=== PATIENT | female | born 1980 | race Two or more races ===

== ENCOUNTER 2020-05-04 11:18 | Emergency (ER) | payer OTHER ==
[~2020-05-04] VITALS: Ht 167.6 cm; Wt 93.4 kg
[2020-05-04] MEDS ORDERED: ACETAMINOPHEN 325 MG TABLET PO ONE (11:30)
[2020-05-04] MEDS ORDERED: IV NORMAL SALINE 1,000ML 1,000 ML IV ONE (11:30)
--- NOTE | 2020-05-04 11:31 | PHYS DOC ---
Past History Past Medical History: Arthritis (Rheumatoid), Hypertension, Seizure Adult General Chief Complaint Chief Complaint: SEIZURE HPI HPI Patient is a 39-year-old female presenting via EMS for seizure. Per EMS report, patient son was participating in [employer] education when he started crying. Teacher inquired about why child was crying and he stated that his mother passed out. Teacher subsequently called EMS to patient's house for a wellness check. On arrival, patient was found to be in a postictal state and experienced a subsequent generalized grand mal seizure-like activity that lasted less than 10 seconds in duration and resolved without intervention. Patient's was contacted, he reports that patient has history of seizures and takes medications daily, sees Dr. Astudillo in outpatient setting for this. Last seizure was approximately 7 to 8 months ago. Patient has had no recent medication changes, no recent travel or concerning ingestions. Given that initial seizure activity occurred at 9:30 AM and it is unknown how long patient was down, decision was made to bring patient to our ER for evaluation. On arrival to our facility, patient is AAO x3. Still postictal but per EMS is markedly improved versus when initially seen on the scene. Patient denies any known trauma, per EMS, patient was in chair in living room, no signs of trauma or falls when evaluated on scene. Per child, no falls, did not hit head Review of Systems Review of Systems Fourteen body systems of review of systems have been reviewed. See HPI for pertinent positives and negative responses, other godinez all other systems are negative, non-pertinent or non-contributory Allergies Allergies Allergies Coded Allergies Type Severity Reaction Last Updated Verified No Known Drug Allergies 05/04/20 No Physical Exam Physical Exam Constitutional: Well developed, well nourished, no acute distress, non-toxic appearance. Appears postictal HENT: Normocephalic, atraumatic, bilateral external ears normal, negative meek sign, oropharynx moist, no oral exudates, nose normal. Eyes: PERRLA, EOMI, conjunctiva normal, no discharge. Neck: Normal range of motion, no midline tenderness, supple, no stridor. Cardiovascular: Heart rate regular, sinus rhythm, no murmurs rubs or gallops Lungs & Thorax: Bilateral breath sounds clear to auscultation Abdomen: Bowel sounds normal, soft, no tenderness, no masses, no pulsatile masses. Nonsurgical abdomen, no peritoneal signs Skin: Warm, dry, no erythema, no rash. Back: No tenderness, no CVA tenderness. Extremities: No tenderness, no cyanosis, no clubbing, ROM intact, no edema. Neurologic: Alert and oriented X 3, cranial nerves II through XII intact, normal motor & sensory function, no focal deficits noted. Psychologic: Affect normal, judgement normal, mood normal. Current Patient Data Vital Signs Vital Signs Date Time Temp Pulse Resp B/P (MAP) Pulse Ox O2 Delivery O2 Flow Rate FiO2 05/04/20 12:47 87 171/126 05/04/20 12:38 16 98 Room Air 05/04/20 11:22 98.1 Lab Results Laboratory Tests Test 05/04/20 11:29 05/04/20 12:40 05/04/20 12:44 White Blood Count 8.2 x10^3/uL (4.0-11.0) Red Blood Count 4.68 x10^6/uL (3.50-5.40) Hemoglobin 12.6 g/dL (12.0-15.5) Hematocrit 38.7 % (36.0-47.0) Mean Corpuscular Volume 83 fL (79-100) Mean Corpuscular Hemoglobin 27 pg (25-35) Mean Corpuscular Hemoglobin Concent 33 g/dL (31-37) Red Cell Distribution Width 13.2 % (11.5-14.5) Platelet Count 328 x10^3/uL (140-400) Neutrophils (%) (Auto) 68 % (31-73) Lymphocytes (%) (Auto) 24 % (24-48) Monocytes (%) (Auto) 5 % (0-9) Eosinophils (%) (Auto) 3 % (0-3) Basophils (%) (Auto) 1 % (0-3) Neutrophils # (Auto) 5.6 x10^3uL (1.8-7.7) Lymphocytes # (Auto) 2.0 x10^3/uL (1.0-4.8) Monocytes # (Auto) 0.4 x10^3/uL (0.0-1.1) Eosinophils # (Auto) 0.2 x10^3/uL (0.0-0.7) Basophils # (Auto) 0.1 x10^3/uL (0.0-0.2) Sodium Level 138 mmol/L (136-145) Potassium Level 3.2 mmol/L (3.5-5.1) Chloride Level 101 mmol/L (98-107) Carbon Dioxide Level 25 mmol/L (21-32) Anion Gap 12 (6-14) Blood Urea Nitrogen 6 mg/dL (7-20) Creatinine 1.0 mg/dL (0.6-1.0) Estimated GFR (Cockcroft-Gault) 62.1 BUN/Creatinine Ratio 6 (6-20) Glucose Level 197 mg/dL (70-99) Calcium Level 8.3 mg/dL (8.5-10.1) Total Bilirubin 0.7 mg/dL (0.2-1.0) Aspartate Amino Transf (AST/SGOT) 58 U/L (15-37) Alanine Aminotransferase (ALT/SGPT) 79 U/L (14-59) Alkaline Phosphatase 73 U/L (46-116) Creatine Kinase 211 U/L (26-192) Total Protein 7.1 g/dL (6.4-8.2) Albumin 3.1 g/dL (3.4-5.0) Albumin/Globulin Ratio 0.8 (1.0-1.7) Urine Collection Type Unknown Urine Color Yellow Urine Clarity Cloudy Urine pH 7.[address] 1.015 Urine Protein Trace (NEG-TRACE) Urine Glucose (UA) 100 mg/dL (NEG) Urine Ketones (Stick) Neg mg/dL (NEG) Urine Blood Neg (NEG) Urine Nitrite Neg (NEG) Urine Bilirubin Neg (NEG) Urine Urobilinogen Dipstick 0.2 mg/dL (0.2 mg/dL) Urine Leukocyte Esterase Mod (NEG) Urine RBC Occ /HPF (0-2) Urine WBC 1-4 /HPF (0-4) Urine Squamous Epithelial Cells Many /LPF Urine Bacteria Mod /HPF (0-FEW) Urine Test Negative (NEG) Bedside Urine HCG, Qualitative hcg negative (Negative) EKG EKG EKG ordered and interpreted by myself at 1136 hrs. as sinus rhythm at 99 bpm, unremarkable intervals but does have a prolonged QTC at 491, no axis deviation, no ischemic findings, no STEMI Radiology/Procedures Radiology/Procedures INDICATION: Reason: SEIZURE / Spl. Instructions: / History: COMPARISON: None. FINDINGS: Single view of chest obtained. Cardiac silhouette is prominent in size but likely exaggerated by portable technique. Left lung base is not well evaluated given the lack of lateral view. No consolidation elsewhere in the lungs. IMPRESSION: * No definite focal airspace consolidation. Electronically signed by: Noble Damon MD (05/04/2020 12:06 PM) [id number] CT HEAD WITHOUT CONTRAST History: Reason: SEIZURE, PROLONGED POST ICTAL STATE / Spl. Instructions: / History: Comparison: None. Procedure: Axial images are obtained of the head from the skull base through the vertex without IV contrast. Findings: The ventricles and sulci are normal for the patient's age. No mass-effect, midline shift, hemorrhage, extra-axial fluid collection, or obvious acute infarction is identified. Basilar cisterns are patent. Bone windows demonstrate no acute calvarial abnormality. The visualized paranasal sinuses are clear. Mastoid air cells are well aerated. IMPRESSION: No acute intracranial abnormality. Electronically signed by: Joseph Maya MD (05/04/2020 11:57 AM) [id number] Heart Score HEART Score for Chest Pain: HEART Score for Chest Pain Response (Comments) Value History Slighlty/Non-Suspicious 0 ECG Normal 0 Age < 45 0 Risk Factors 1 or 2 Risk Factors 1 Total 1 Risk Factors: Risk Factors: DM, Current or recent (<one month) smoker, HTN, HLP, family history of CAD, obesity. Risk Scores: Risk Factors: DM, Current or recent (<one month) smoker, HTN, HLP, family history of CAD, obesity. Course & Med Decision Making Course & Med Decision Making Airway patent, breathing unlabored, vitals remarkable for hypertension only. Patient did not take morning hypertensive medication, this was administered while in ER today Pertinent Labs and Imaging studies reviewed. (See chart for details) Well-appearing and non-txic. Not , ambulatory and tolerating p.o. intake. Discussed potential for UTI to have lowered patient's seizure threshold. Patient given x1 Macrobid for uncomplicated UTI today with subsequent prescription written. 40 mEq potassium given for hypokalemia. I discussed findings of prolonged QT, no prior cardiac work-up performed After stating the above as explanations for patient's presenting symptoms, I did disclose this might be an acute presentation more concerning pathology and so, close outpatient PCP and neurology follow-up is advised Patient was advised and educated on importance of close outpatient follow-up. I advised them to call primary care physician as soon as possible to discuss following up in outpatient setting after ER departure for repeat examination and evaluation. Strict return precautions were discussed at length with good understanding by patient who is able to restate plan and concerning signs or symptoms that should prompt immediate medical attention. All questions and concerns addressed prior to ER departure Dragkelsy Disclaimer Dragon Disclaimer This electronic medical record was generated, in whole or in part, using a voice recognition dictation system. Departure Departure: Impression: Primary Impression: Seizure disorder Additional Impressions: UTI (urinary tract infection) Prolonged QT interval Hypokalemia Disposition: 01 DC HOME SELF CARE/HOMELESS Condition: IMPROVED Patient Instructions: Seizure, Adult, Urinary Tract Infection Scripts Nitrofurantoin Monohyd/M-Cryst (MACROBID 100 MG CAPSULE) 100 Mg Capsule 100 MG PO BID for UTI for 5 Days, #10 CAP Prov: JEREMY FARR DO 05/04/20 Problem Qualifiers JEREMY FARR DO May 04, 2020 11:31
[2020-05-04 11:54] LABS: BASO # 0.1 x10^3/uL (0.0-0.2); BASO % 1 % (0-3); EOS # 0.2 x10^3/uL (0.0-0.7); EOS % 3 % (0-3); HEMATOCRIT 38.7 % (36.0-47.0); HEMOGLOBIN 12.6 g/dL (12.0-15.5); LYMPH % 24 % (24-48); MEAN CORPUSCULAR HEMOGLOBIN 27 pg (25-35); MEAN CORPUSCULAR HGB CONC 33 g/dL (31-37); MEAN CORPUSCULAR VOLUME 83 fL (79-100); MONO # 0.4 x10^3/uL (0.0-1.1); MONO % 5 % (0-9); NEUT # 5.6 x10^3uL (1.8-7.7); NEUT % 68 % (31-73); PLATELET COUNT 328 x10^3/uL (140-400); RED BLOOD COUNT 4.68 x10^6/uL (3.50-5.40); RED CELL DISTRIBUTION WIDTH 13.2 % (11.5-14.5); WHITE BLOOD COUNT 8.2 x10^3/uL (4.0-11.0)
--- NOTE | 2020-05-04 11:59 | RAD ---
RS Compliance Statement: One or more of the following individualized dose reduction techniques were utilized for this examination: 1. Automated exposure control 2. Adjustment of the mA and/or kV according to patient size 3. Use of iterative reconstruction technique CT HEAD WITHOUT CONTRAST History: Reason: SEIZURE, PROLONGED POST ICTAL STATE / Spl. Instructions: / History: Comparison: None. Procedure: Axial images are obtained of the head from the skull base through the vertex without IV contrast. Findings: The ventricles and sulci are normal for the patient's age. No mass-effect, midline shift, hemorrhage, extra-axial fluid collection, or obvious acute infarction is identified. Basilar cisterns are patent. Bone windows demonstrate no acute calvarial abnormality. The visualized paranasal sinuses are clear. Mastoid air cells are well aerated. IMPRESSION: No acute intracranial abnormality. Electronically signed by: Joseph Maya MD (05/04/2020 11:57 AM) [id number]
[2020-05-04 12:01] LABS: CALCIUM 8.3 mg/dL (8.5-10.1); GFR 62.1; POTASSIUM 3.2 mmol/L (3.5-5.1)
[2020-05-04 12:05] LABS: ALBUMIN 3.1 g/dL (3.4-5.0); ALBUMIN/GLOBULIN RATIO 0.8 (1.0-1.7); TOTAL BILIRUBIN 0.7 mg/dL (0.2-1.0); TOTAL PROTEIN 7.1 g/dL (6.4-8.2)
--- NOTE | 2020-05-04 12:11 | RAD ---
INDICATION: Reason: SEIZURE / Spl. Instructions: / History: COMPARISON: None. FINDINGS: Single view of chest obtained. Cardiac silhouette is prominent in size but likely exaggerated by portable technique. Left lung base is not well evaluated given the lack of lateral view. No consolidation elsewhere in the lungs. IMPRESSION: * No definite focal airspace consolidation. Electronically signed by: Noble Damon MD (05/04/2020 12:06 PM) [id number]
[2020-05-04] MEDS ORDERED: POTASSIUM CHLORIDE 20 MEQ TABLET.ER. PO ONE (12:30)
[2020-05-04 12:47] VITALS: BP 171/126
[2020-05-04] MEDS ORDERED: LOSARTAN 50 MG TABLET. PO ONE (12:47)
[2020-05-04 13:20] LABS: BACTERIA,URINE MOD /HPF (0-FEW); BILIRUBIN,URINE NEG (NEG); CLARITY,URINE CLOUDY; COLOR,URINE YELLOW; GLUCOSE,URINE 100 mg/dL (NEG); NITRITE,URINE NEG (NEG); RBC,URINE OCC /HPF (0-2); SQUAMOUS EPITHELIAL CELL,UR MANY /LPF; UROBILINOGEN,URINE 0.2 mg/dL (0.2 mg/dL)
[2020-05-04 13:21] LABS: U PREG PATIENT NEGATIVE (NEG)
[2020-05-04] MEDS ORDERED: NITR100C62 PO (13:27)
[2020-05-04] MEDS ORDERED: NITROFURANTOIN MONOHYD/M-CRYST 100 MG CAPSULE. PO ONE (13:30)
--- NOTE | 2020-05-04 15:58 | EKG ---
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
== END 2020-05-04 13:47 | disposition home or self-care (01) ==
LOC: ER 11:18
DX: G40.909 Epilepsy, unspecified, not intractable, without status epilepticus (principal); N39.0 Urinary tract infection, site not specified; I45.81 Long QT syndrome; E87.6 Hypokalemia; I10 Essential (primary) hypertension; M06.9 Rheumatoid arthritis, unspecified
CPT/HCPCS: 36415; 70450; 71045; 80053; 81001; 81025; 82550; 85025; 87086; 93005; 99285

== ENCOUNTER 2020-08-03 14:59 | Observation (INO) | payer OTHER ==
[~2020-08-03] VITALS: Ht 165.1 cm; Wt 92.6 kg
[~2020-08-03 14:59] MED LIST: NITR100C62 PO
[2020-08-03 15:24] LABS: BASO # 0.1 x10^3/uL (0.0-0.2); BASO % 1 % (0-3); EOS # 0.4 x10^3/uL (0.0-0.7); EOS % 4 % (0-3); HEMATOCRIT 40.7 % (36.0-47.0); HEMOGLOBIN 13.6 g/dL (12.0-15.5); LYMPH # 3.1 x10^3/uL (1.0-4.8); LYMPH % 33 % (24-48); MEAN CORPUSCULAR HEMOGLOBIN 27 pg (25-35); MEAN CORPUSCULAR HGB CONC 33 g/dL (31-37); MEAN CORPUSCULAR VOLUME 80 fL (79-100); MONO # 0.6 x10^3/uL (0.0-1.1); MONO % 6 % (0-9); NEUT # 5.2 x10^3uL (1.8-7.7); NEUT % 56 % (31-73); PLATELET COUNT 424 x10^3/uL (140-400); WHITE BLOOD COUNT 9.3 x10^3/uL (4.0-11.0)
[2020-08-03 16:24] LABS: CALCIUM 8.4 mg/dL (8.5-10.1); CREATININE 1.2 mg/dL (0.6-1.0); GFR 50.3
[2020-08-03 16:30] LABS: ALBUMIN 3.3 g/dL (3.4-5.0); ALBUMIN/GLOBULIN RATIO 0.8 (1.0-1.7); TOTAL BILIRUBIN 0.3 mg/dL (0.2-1.0); TOTAL PROTEIN 7.4 g/dL (6.4-8.2)
[2020-08-03 16:42] LABS: PREG TEST PT QUAL NEGATIVE (NEG)
--- NOTE | 2020-08-03 16:48 | PHYS DOC ---
Past History Past Medical History: Arthritis, Hypertension, Seizure Past Surgical History: Tubal ligation Alcohol Use: None Adult General Chief Complaint Chief Complaint: SEIZURE HPI HPI Patient is 39-year-old female with a known seizure disorder who presents to the emergency room with seizure. Is unclear how long she had been seizing prior to arrival. History is very limited as patient was dropped off by her who had to leave to take care of their children. Patient is unable to provide any history. Review of Systems Review of Systems Complete ROS is negative unless otherwise documented in HPI Current Medications Current Medications Current Medications Medications (Trade) Dose Ordered Sig/Nino Start Time Stop Time Status Last Admin Dose Admin Levetiracetam 1000 mg/Sodium Chloride 100 ml @ 400 mls/hr 1X ONCE 08/03/20 15:15 08/03/20 15:29 DC 08/03/20 15:23 400 MLS/HR Lorazepam (Ativan Inj) 1 mg 1X ONCE 08/03/20 15:15 08/03/20 15:16 DC 08/03/20 15:18 1 MG Allergies Allergies Allergies Coded Allergies Type Severity Reaction Last Updated Verified No Known Drug Allergies 05/04/20 No Physical Exam Physical Exam General: Unresponsive, well developed HEENT: Atraumatic, EOMI, PERRL, airway patent, moist oral mucosa Neck: Supple, trachea midline Respiratory: CTA bilaterally, normal effort, no wheezing/crackles CV: Tachycardic, no murmur, cap refill <2 GI: Soft, nondistended, no masses MSK: No obvious deformities Skin: Warm, dry, intact Neuro: Unresponsive, nystagmus, generalized muscle contractions consistent with seizure Current Patient Data Vital Signs Vital Signs Date Time Temp Pulse Resp B/P (MAP) Pulse Ox O2 Delivery O2 Flow Rate FiO2 08/03/20 16:00 100 22 146/86 (106) 98 Nasal Cannula 08/03/20 15:15 98.1 08/03/20 14:59 15.0 Lab Results Laboratory Tests Test 08/03/20 15:05 08/03/20 15:10 White Blood Count 9.3 x10^3/uL (4.0-11.0) Red Blood Count 5.10 x10^6/uL (3.50-5.40) Hemoglobin 13.6 g/dL (12.0-15.5) Hematocrit 40.7 % (36.0-47.0) Mean Corpuscular Volume 80 fL (79-100) Mean Corpuscular Hemoglobin 27 pg (25-35) Mean Corpuscular Hemoglobin Concent 33 g/dL (31-37) Red Cell Distribution Width 14.0 % (11.5-14.5) Platelet Count 424 x10^3/uL (140-400) H Neutrophils (%) (Auto) 56 % (31-73) Lymphocytes (%) (Auto) 33 % (24-48) Monocytes (%) (Auto) 6 % (0-9) Eosinophils (%) (Auto) 4 % (0-3) H Basophils (%) (Auto) 1 % (0-3) Neutrophils # (Auto) 5.2 x10^3uL (1.8-7.7) Lymphocytes # (Auto) 3.1 x10^3/uL (1.0-4.8) Monocytes # (Auto) 0.6 x10^3/uL (0.0-1.1) Eosinophils # (Auto) 0.4 x10^3/uL (0.0-0.7) Basophils # (Auto) 0.1 x10^3/uL (0.0-0.2) Sodium Level 141 mmol/L (136-145) Potassium Level Pending Chloride Level 100 mmol/L (98-107) Carbon Dioxide Level 30 mmol/L (21-32) Anion Gap 11 (6-14) Blood Urea Nitrogen 11 mg/dL (7-20) Creatinine 1.2 mg/dL (0.6-1.0) H Estimated GFR (Cockcroft-Gault) 50.3 BUN/Creatinine Ratio 9 (6-20) Glucose Level 235 mg/dL (70-99) H Calcium Level 8.4 mg/dL (8.5-10.1) L Total Bilirubin 0.3 mg/dL (0.2-1.0) Aspartate Amino Transferase (AST) 47 U/L (15-37) H Alanine Aminotransferase (ALT) 58 U/L (14-59) Alkaline Phosphatase 80 U/L (46-116) Total Protein 7.4 g/dL (6.4-8.2) Albumin 3.3 g/dL (3.4-5.0) L Albumin/Globulin Ratio 0.8 (1.0-1.7) L Serum Test, Qualitative Negative (NEG) Glucose (Fingerstick) 221 mg/dL (70-99) H EKG EKG [] Radiology/Procedures Radiology/Procedures [] Heart Score Risk Factors: Risk Factors: DM, Current or recent (<one month) smoker, HTN, HLP, family history of CAD, obesity. Risk Scores: Risk Factors: DM, Current or recent (<one month) smoker, HTN, HLP, family history of CAD, obesity. Course & Med Decision Making Course & Med Decision Making Pertinent Labs and Imaging studies reviewed. (See chart for details) Patient is a 39-year-old female who presents to the emergency room with seizure. Is unclear at this time whether she has been taking her medications. She was last seen here for seizures in May. Lab work was ordered to rule out anything that could lower the seizure threshold. Patient was given Ativan and Keppra upon arrival. Seizures did stop at that time and patient became postictal. Patient had a second seizure here in the emergency room that lasted less than a minute. She received Ativan 2 mg which resolved the seizure. She was given a second 1000 mg dose of Keppra. I discussed the case with Dr. Early who will admit her to the hospital. A consult was placed for Dr. Astudillo who she sees in clinic. Patient is on Vimpat for seizures at home. Dragon Disclaimer Dragon Disclaimer This electronic medical record was generated, in whole or in part, using a voice recognition dictation system. Departure Departure: Impression: Primary Impression: Seizure Disposition: ADMITTED INPT THIS HOSP Condition: STABLE Referrals: PCP,UNKNOWN (PCP) YAMILA HERNÁNDEZ MD Aug 03, 2020 16:48
[2020-08-03 17:11] LABS: POTASSIUM 3.4 mmol/L (3.5-5.1)
--- NOTE | 2020-08-03 18:13 | EKG ---
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
--- NOTE | 2020-08-03 18:36 | RAD ---
Exam: CT head INDICATION: Multiple seizures TECHNIQUE: Sequential axial images through the head were obtained without the administration of IV co ntrast. Comparisons: 05/04/2020 FINDINGS: No focal parenchymal lesion or hemorrhage is identified. There is no midline shift or sulcal effaceme nt. No acute vascular territory infarction is identified. Adan-white distinction is preserved. The ventricular system is within normal limits without compression hydrocephalus. The basal cisterns are well maintained. The visualized portions of the paranasal sinuses and mastoid air cells are well-pneumatized. No acute fractures. IMPRESSION: No acute intracranial abnormality. Exposure: One or more of the following in the visualized dose reduction techniques were utilized for this examination: 1. Automated exposure control 2. Adjustment of the MA and/or KV according to patient size Use of iterative of reconstructive technique Electronically signed by: Serafin Krishnamurthy MD (08/03/2020 6:34 PM) FAITH
[2020-08-03 19:15] VITALS: BP 157/94
--- NOTE | 2020-08-03 19:15 | NUR ---
Pt admitted to ICU bed 2 from ER via [facility], accompanied by EMS and nursing staff. Pt was pulled over from gurney to bed x3 assist, pt very drowsy r/t Ativan given in ER and recent seizure. Pt is drowsy but will shake head appropriately to questions or answer with one word statements. Admission history per pt, records and Aneesh over phone. Pt lives at home with and kids. Pt refused flu vaccine. SCDs for VTE. Pt was given written information regarding hospital policies, unit procedures and contact persons. POC reviewed with pt, reinforcement needed. Valuables were checked and left in green bag at bedside. - Aneesh called for update and reviewed home medications, he read the bottles over the phone. Dr. Astudillo paged about new consult and returned call, stated that he is coming in to see pt tonight. Dr. Early called for new orders. Bed padded for seizure precautions.
[2020-08-03] MEDS ORDERED: LACO200T PO (19:58)
[2020-08-03 20:00] VITALS: BP 152/98
[2020-08-03] MEDS ORDERED: AMLO10TA4 PO (20:20)
[2020-08-03] MEDS ORDERED: LOSA100T14 PO (20:20)
[2020-08-03] MEDS ORDERED: ARIP15TA36 PO (20:20)
[2020-08-03] MEDS ORDERED: POTA20TA4 PO (20:20)
[2020-08-03] MEDS ORDERED: METO-313 PO (20:20)
[2020-08-03] MEDS ORDERED: METH2.5T PO (20:33)
[2020-08-03] MEDS: LACOSAMIDE 50 MG TABLET PO SCH (20:54)
[2020-08-03 21:00] VITALS: BP 172/110
[2020-08-03] MEDS ORDERED: ARIPiprazole 15 MG TABLET PO SCH (21:30)
[2020-08-03 22:00] VITALS: BP 161/110
[2020-08-03] MEDS: METOPROLOL TART IMMED RELEASE 50 MG TABLET PO SCH (22:26)
--- NOTE | 2020-08-03 22:40 | CONS ---
DATE OF CONSULTATION: NEUROLOGY CONSULTATION REFERRING PHYSICIAN: Dr. Edgard Early REASON FOR CONSULTATION: Breakthrough seizure. HISTORY OF PRESENT ILLNESS: This is a 39-year-old right-handed female who was admitted through Emergency Room after she presented with recurrent seizure-like activities prior to this admission. The patient has been in my office on a regular basis for seizure disorder. I saw her 3 months ago and sometimes she told me she would have seizure when she forgot to take her medications. Currently, the patient is in confusion and postictal state and she is not able to provide any information; however, the patient was given Ativan in the Emergency Room and she started on 1000 of Keppra intravenously. According to her , the patient had a "big seizure" 2 days ago and today, she went with her to a store and she started having intermittent "muscle spasm of the arms and legs." Therefore, he decided to take her to Emergency Room for further evaluation. Initial nonenhanced head CT scan revealed no evidence of acute intracranial process, otherwise unremarkable. The stated that she has been compliant with her medication for seizure. Further information is not available at this time as the patient has been in postictal and not able to provide any information. PAST MEDICAL HISTORY: Significant for hypertension, seizure disorder, depression and anxiety. SOCIAL HISTORY: The patient is . She denies smoking, alcohol drinking, or illicit drug use. FAMILY HISTORY: Noncontributory. CURRENT HOME MEDICATIONS: Amlodipine 10 mg p.o. daily, Abilify 15 mg p.o. at bedtime, Vimpat 200 mg twice daily, losartan 100 mg daily, metoprolol tartrate, Lopressor 100 mg daily, and potassium chloride 20 mEq 1 tablet daily. ALLERGIES: No known drug allergies. REVIEW OF SYSTEMS: A 10-point review of system was performed as mentioned above in history of present illness. PHYSICAL EXAMINATION: GENERAL: Moderately obese female, not in acute distress. She weighs 192.6 kilos. VITAL SIGNS: Blood pressure 152/98, respiratory rate 24, pulse is 105, temperature 98.1, oxygen saturation 99% on 4 liters via nasal cannula. HEENT: Normocephalic, atraumatic, otherwise unremarkable. NECK: Supple. Negative for carotid bruit, lymphadenopathy or thyromegaly. LUNGS: Clear to A and P. CARDIOVASCULAR: Regular rate and rhythm, normal S1, S2. ABDOMEN: Soft. Bowel sounds positive. EXTREMITIES: Negative for cyanosis, clubbing or edema. NEUROLOGICAL EXAM: Mental Status: The patient is drowsy, but arousable. She follows 1-step commands. She seemed to have an intact comprehension, but not able to communicate. She is very drowsy under the influence of Ativan. Further evaluation for her mental status is limited at this time. CRANIAL NERVES: Pupils are equal and reactive to light and accommodation. The extraocular movements are intact. There is no nystagmus. There are no facial motor or sensory deficits. Hearing is intact bilaterally. The palate is elevated symmetrically. Sternocleidomastoid muscles are powerful bilaterally. The patient shrugs her shoulders symmetrically, protrudes her tongue in the midline without fasciculation or atrophy. MOTOR EXAMINATION: No focal muscle bulk was seen. The tone is normal. The strength is 4/5 throughout. SENSORY EXAMINATION: Revealed normal pinprick and light touch senses. Deep tendon reflexes were symmetric and hypoactive. GAIT: Not tested. LABORATORY DATA: CBC revealed white blood cells of 9.3 thousand; hemoglobin 13.6; hematocrit 40.7; platelet count 424,000. Chemistry revealed sodium of 141, potassium 3.4, chloride 100, CO2 of 30, BUN 11, creatinine 1.2, glucose 235, calcium 8.4. Liver enzymes slightly elevated AST at 47 with normal ALT. IMPRESSION: 1. Breakthrough seizure. It is not known whether the patient has been compliant with current anticonvulsant or not. 2. Multiple medical problems include depression, anxiety, hypertension. RECOMMENDATION: Resume home medication including Vimpat 200 mg b.i.d. M Savanna LOPEZ MD DR: RHEA/bobby JOB#: [id number] / [id number]
[2020-08-03 23:00] VITALS: BP 174/113
[2020-08-03 23:45] VITALS: BP 156/100
[2020-08-04] VITALS (11 sets, daily range): BP systolic 101–154; BP diastolic 72–92
--- NOTE | 2020-08-04 06:10 | NUR ---
Pt without seizure during shift. HR & BP improved after PO metoprolol. Pt assisted up to bathroom this AM to void, unsteady on feet but more alert and able to nod head to question appropriately. Pt wanting to go home later today.
[2020-08-04] MEDS ORDERED: POTASSIUM CHLORIDE 20 MEQ TABLET.ER. PO SCH (09:00)
[2020-08-04] MEDS ORDERED: LOSARTAN 50 MG TABLET. PO SCH (09:00)
[2020-08-04] MEDS: METOPROLOL TART IMMED RELEASE 50 MG TABLET PO SCH (09:00)
[2020-08-04] MEDS ORDERED: amLODIPine BESYLATE 10 MG TABLET PO SCH (09:00)
[2020-08-04] MEDS: LACOSAMIDE 50 MG TABLET PO SCH (09:05)
[2020-08-04] MEDS ORDERED: oxyCODONE/APAP 10/325 1 TAB TABLET PO ONE (09:30)
--- NOTE | 2020-08-04 10:54 | HP ---
ADMIT DATE: 08/03/2020 ATTENDING PHYSICIAN: Dr. Arce. CHIEF COMPLAINT: Breakthrough seizures. HISTORY OF PRESENT ILLNESS: The patient is a 39-year-old female with known documented seizure disorder, presented to the Emergency Room with breakthrough seizures. She had a witnessed grand mal seizures. She was treated with IV Keppra. She has seen Dr. Astudillo in the past. He has stated that compliance may be an issue or noncompliance. In any event, she was admitted overnight for further evaluation and neurologic consultation. PAST MEDICAL HISTORY: Significant for rheumatoid arthritis. She has also had a tubal ligation, essential hypertension, and seizure disorder. CURRENT MEDICATIONS: Include the following: She was scheduled to take amlodipine 10 mg daily, Abilify 15 mg daily, Vimpat 200 mg b.i.d., losartan 100 mg daily, methotrexate weekly oral dosage, metoprolol and potassium supplementation. ALLERGIES: She has no recorded drug allergies. SOCIAL HISTORY: She is a nonsmoker, nondrinker. She is . She stays home and takes care of her children. , I believe in the . FAMILY HISTORY: Noncontributory. REVIEW OF SYSTEMS: Significant for the rheumatoid arthritis. She has had supposedly been compliant with her meds, although Dr. Astudillo has some questions as he knows her in the past. The rest of the detailed review of systems as the patient turned to be negative. PHYSICAL EXAMINATION: GENERAL: When I saw her, this is a pleasant young female. INITIAL VITAL SIGNS: Showed she was afebrile. Blood pressure was 121/89, pulse 66 and regular. She was afebrile, oxygen saturation 96% on 2 liters of nasal cannula. HEENT: Head is without trauma. Pupils are reactive. Sclerae nonicteric. Oropharynx clear. NECK: Supple, no bruits. LUNGS: Clear. CARDIOVASCULAR: Showed regular heart tones. ABDOMEN: Soft, no guarding, rebound tenderness. Good bowel sounds. EXTREMITIES: Showed no cyanosis or edema. NEUROLOGIC: Focally intact. Speech is fluent. PERTINENT LABORATORY STUDIES: The obligatory CT of the head showed no acute strokes or bleeds. The CBC and chemistry panel were reviewed and determined unremarkable. Hemoglobin 13.6, sodium 141, potassium 3.4 mEq, creatinine 1.2 mg percent, nonfasting blood sugar 235. ASSESSMENT: 1. A 39-year-old female with breakthrough seizures. 2. Questionable compliance of antiepileptic drugs. 3. Rheumatoid arthritis. 4. Probable diabetes. 5. Essential hypertension. PLAN: 1. Admit to the telemetry unit. 2. Continue IV Keppra. 3. Formal neurologic consultation, Dr. Astudillo. 4. Diet as tolerated. LIZANDRO ARCE MD DR: BRIA/bobby JOB#: [id number] / [id number]
--- NOTE | 2020-08-04 11:45 | NUR ---
Discharged pt to home with husbands care. Gave work excuse note for 3-4 and 3-5. Pt still slightly drowsy and unsteady on her feet. A/O x4, discharge paperwork and medications reviewed with . All questions answered.
--- NOTE | 2020-08-04 15:04 | DS ---
DATE OF DISCHARGE: 08/04/2020 ATTENDING PHYSICIAN: Dr. Lizandro Arce. FINAL DISCHARGE DIAGNOSES: 1. Breakthrough seizures. 2. Idiopathic seizure disorder. 3. Questionable compliance of meds. 4. Essential hypertension. 5. Type 2 diabetes mellitus. 6. Rheumatoid arthritis. HISTORY AND PHYSICAL: This is a 39-year-old female with known idiopathic seizure disorder. She follows Dr. Astudillo, questionable compliance. She had breakthrough seizures, sent to the ED. CT of the head was unremarkable. She was loaded with Keppra and Ativan and admitted for observation overnight. PHYSICAL EXAMINATION: Please see the dictated note. PERTINENT LABORATORY AND X-RAY STUDIES: Hemoglobin 13.6 g/dL, white count 9300. Electrolytes within normal range. Creatinine is 1.2 mg percent, nonfasting blood sugar 221. CT of the head, no acute pathology identified. COURSE IN THE HOSPITAL: She was admitted, restarted on her Vimpat along with her Keppra. Dr. Astudillo saw her in consultation twice the night of admission and early next morning. She was ready for discharge. He recommended Vimpat 200 mg p.o. b.i.d. and Keppra 500 mg p.o. b.i.d. In addition, she will continue her metformin and Trulicity that was not on her admission medication list. She will also continue her methotrexate weekly along with her antihypertensive regimen, amlodipine, Abilify, losartan, and metoprolol. Dr. Astudillo suggested a followup with his clinic in 2 weeks' time. The patient was then discharged from our hospital in stable condition with explicit instructions and followup care. LIZANDRO ARCE MD DR: BRIA/bobby JOB#: [id number] / [id number]
--- NOTE | 2020-08-04 15:59 | PN ---
DATE: SUBJECTIVE: The patient denies any new medical or neurological complaints; however, she has been tired since admission after she had a seizure. The patient stated she had another seizure 2 days ago, but she is not offered too quickly. She denies headaches, visual disturbances, nausea, vomiting, chest pain, shortness of breath or palpitation. OBJECTIVE: GENERAL: Well-developed, well-nourished female, not in acute distress. VITAL SIGNS: Stable. Blood pressure 121/89, respiratory rate 18, pulse is 66 and regular, oxygen saturation is 99% on 2 liters by nasal cannula, temperature 97.5. HEENT: Normocephalic, atraumatic, otherwise unremarkable. NECK: Supple. Negative for carotid bruit, lymphadenopathy or thyromegaly. LUNGS: Clear to A and P. CARDIOVASCULAR: Regular rate and rhythm, normal S1, S2. There is no S3 or S4 or murmur. ABDOMEN: Soft. Bowel sounds positive. EXTREMITIES: Negative for cyanosis, clubbing or edema. NEUROLOGICAL EXAM: Mental Status: The patient is alert and oriented x 2. The speech is fluent. There is no language dysfunction. Cranial nerves are intact. No focal motor or sensory deficit. The strength is 4/5 throughout. Deep tendon reflexes were symmetric and hypoactive with absent Achilles responses. Gait not tested. IMPRESSION: 1. Breakthrough seizure of unknown etiology; however, the patient stated that she has been very faithful with taking her medications at home including Vimpat 200 mg b.i.d. and Keppra 500 mg b.i.d. 2. Hypertension, controlled. RECOMMENDATIONS: 1. Continue with current home medications and also anticonvulsant medications including Vimpat 200 mg b.i.d. and Keppra 500 mg b.i.d. 2. Follow up with Dr. Lopez after 2 weeks from discharge. M Savanna LOPEZ MD DR: RHEA/bobby JOB#: [id number] / [id number]
== END 2020-08-04 11:45 | disposition home or self-care (01) ==
LOC: ER 14:59 → INTOOBSV 17:36 → ICU 17:36
PROVIDERS: ADMIT Hospitalist; ATTEND Hospitalist
DX: G40.409 Other generalized epilepsy and epileptic syndromes, not intractable, without status epilepticus (principal); M06.9 Rheumatoid arthritis, unspecified; I10 Essential (primary) hypertension; E11.9 Type 2 diabetes mellitus without complications; F32.9 Major depressive disorder, single episode, unspecified; F41.9 Anxiety disorder, unspecified; Z91.19 Patient's noncompliance with other medical treatment and regimen; Z98.51 Tubal ligation status
CPT/HCPCS: 36415; 70450; 80053; 82947; 84703; 85025; 93005; 96365; 96375; 96376; 99285; G0378; J1953; J2060; G0379

== ENCOUNTER 2020-11-08 18:41 | Emergency (ER) | payer OTHER ==
[~2020-11-08] VITALS: Ht 165.1 cm; Wt 92.6 kg
[2020-11-08 18:41] VITALS: BP 147/79
[~2020-11-08 18:41] MED LIST changes: +AMLO10TA4 PO; +ARIP15TA36 PO; +LACO200T PO; +LOSA100T14 PO; +METH2.5T PO; +METO-313 PO; +POTA20TA4 PO
[2020-11-08] MEDS ORDERED: HYDROmorphone PF 1 MG/ML DISP.SYRIN IM ONE (19:30)
--- NOTE | 2020-11-08 20:04 | PHYS DOC ---
Past History Past Medical History: Arthritis, Hypertension, Seizure (ANGELIQUE RAMOS APRN) Past Surgical History: Tubal ligation (ANGELIQUE RAMOS APRN) Alcohol Use: None (ANGELIQUE RAMOS APRN) Adult General Chief Complaint Chief Complaint: PAIN CONTROL HPI HPI Patient is a 40-year-old female who presents to the emergency department complaining of rheumatoid arthritis flareup in her joint of her left knee, left ankle, toes of bilateral feet, knuckles and finger joints of her hands. Patient reports while at the appointment with her sales planning coordinator, she had a seizure and was unable to complete her examination, stating that she will be unable to see her for another 2 weeks. Patient states that her rheumatoid arthritis flareup started 2 weeks ago. Patient states she has done nothing for the pain and cannot take it any longer now. Patient reports seeing Dr. Terra to at the [facility] for primary care. Patient denies chest pain, recent fever or chills, headaches, visual changes. Patient denies cough, or upper respiratory congestion. Patient denies recent travel out of [facility]. Patient states she has no allergies to medications, patient states she takes lacosamide, losartan, a antipsychotic medication but she cannot remember the exact name of, and Humira. Patient states she has tried morphine, fentanyl, Dilaudid, Voltaren, Flexeril, Aleve, Tylenol, Naprosyn, [place], Percocet, OxyContin for her pain without pain relief, patient states she wants something else for her pain. Patient rates her pain a 10/10 on a 1-10 pain scale. Patient states it is typical for her to have RA pain like this, and is not concerned that her RA is getting worse, patient states she can no longer take the pain, and does not feel as if her RA treatments are working that have been offered by her sales planning coordinator. Patient denies any other physical complaints or physical concerns. (ANGELIQUE RAMOS APRN) Review of Systems Review of Systems 14 body systems of review of systems have been reviewed. See HPI for pertinent positives and negative responses, otherwise all other systems are negative, nonpertinent or noncontributory. (ANGELIQUE RAMOS APRN) Current Medications Current Medications Current Medications Medications (Trade) Dose Ordered Sig/Nino Start Time Stop Time Status Last Admin Dose Admin Hydromorphone HCl (Dilaudid) 1 mg 1X ONCE 11/08/20 19:30 11/08/20 19:31 DC 11/08/20 19:43 1 MG (ANGELIQUE RAMOS APRN) Allergies Allergies Allergies Coded Allergies Type Severity Reaction Last Updated Verified No Known Drug Allergies 05/04/20 No (ANGELIQUE RAMOS APRN) Physical Exam Physical Exam Constitutional: Well developed, well nourished, no acute distress, non-toxic appearance. Patient is tearful during exam. Patient's complaint of pain exceeds patient's physical examination in appearance. HENT: Normocephalic, atraumatic, Eyes: conjunctiva normal, no discharge. Neck: Normal range of motion. Cardiovascular: No cyanosis appreciated, distal cap refill less than 2 seconds. Lungs & Thorax: Patient is in no respiratory distress, no adventitious lung sounds appreciated, no pain to palpation in the anterior thorax. Abdomen: Bowel sounds normal, soft, no tenderness, no masses, no pulsatile masses. Skin: Warm, dry, no erythema, no rash. Back: No tenderness, no CVA tenderness. Extremities: No tenderness, no cyanosis, no clubbing, ROM intact, no edema. Neurologic: Alert and oriented X 3, normal motor function, normal sensory function, no focal deficits noted. Psychologic: Affect normal, judgement normal, mood normal. (ANGELIQUE RAMOS APRN) EKG EKG [] (ANGELIQUE RAMOS APRN) Radiology/Procedures Radiology/Procedures [] (ANGELIQUE RAMOS APRN) Heart Score C/O Chest Pain: No Risk Factors: Risk Factors: DM, Current or recent (<one month) smoker, HTN, HLP, family h istory of CAD, obesity. Risk Scores: Risk Factors: DM, Current or recent (<one month) smoker, HTN, HLP, family history of CAD, obesity. (ANGELIQUE RAMOS APRN) Course & Med Decision Making Course & Med Decision Making Pertinent Labs and Imaging studies reviewed. (See chart for details) 40-year-old female, vital signs reviewed, presents emergency department complaining of RA flareup for the past 2 weeks. Patient's physical examination nonconcerning, patient's joints were within normal limits, there was no erythema or swelling within her complaint joints that have pain. Offered patient pain medications, patient states that the narcotic type pain medications do not work it just makes her sleepy. Patient became very tearful and started crying during discussion of pain control. Considered steroid injection however patient is on Humira so steroid injections will be deferred. Discussed with patient will give 1 mg of Dilaudid IM to assist with her acute severe pain, recommended with patient to call her sales planning coordinator tomorrow and let them know of her pain that has been going on for 2 weeks now. Patient gave verbal understanding of discharge home instructions, will call sales planning coordinator tomorrow, return to ER precautions or concerns, patient had no further questions or concerns and was discharged home without incident. (ANGELIQUE RAMOS APRN) Dragon Disclaimer Dragon Disclaimer This electronic medical record was generated, in whole or in part, using a voice recognition dictation system. (ANGELIQUE RAMOS APRN) Attending Co-Sign The patient was seen and interviewed as well as examined at the bedside. The chart was reviewed. The case was discussed. Agree with the plan of care. (TARYN IRBY DO) Departure Departure: Impression: Primary Impression: Rheumatoid arthritis flare Disposition: 01 HOME / SELF CARE / HOMELESS Condition: GOOD Referrals: EILEEN ROMO DO (PCP) Additional Instructions: You are seen today in the emergency department for a rheumatoid arthritis flareup, please call your sales planning coordinator tomorrow and let them know of your unbearable pain you have been experiencing for 2 weeks, please follow-up with your primary care physician for ongoing pain management. Please return to the emergency department for worsening symptoms or other concerns. Please continue to take your medications as prescribed by your healthcare providers. EMERGENCY DEPARTMENT GENERAL DISCHARGE INSTRUCTIONS Thank you for coming to [facility] (ED) today and trusting us with you care. We trust that you had a positivie experience in our Emergency Department. If you wish to speak to the department management, you may call the director at [phone]. YOUR FOLLOW UP INSTRUCTIONS ARE FOLLOWS: 1. Do you have a private Doctor? If you do not have a private doctor, please ask for a resource list of physicians or clinics that may be able to assist you with follow up care. 2. The Emergency Physician has interpreted your x-rays. The X-Ray specialist will also review them. If there is a change in the findings, you will be notified in 48 hours when at all possible. 3. A lab test or culture has been done, your results will be reviewed and you will be notified if you need a change in treatment. ADDITIONAL INSTRUCTIONS AND INFORMATION: 1. Your care today has been supervised by a physician who is specially trained in emergency care. Many problems require more than one evaluation for a complete diagnosis and treatment. We recommend that you schedule your follow up appointment as recommended to ensure complete treatment of you illness or injury. If you are unable to obtain follow up care and continue to have a problem, or if your condition worsens, we recommend that you return to the ED. 2. We are not able to safely determine your condition over the phone nor are we able to give sound medical advice over the phone. For these safety reasons, if you call for medical advice we will ask you to come to the ED for further evaluation. 3. If you have any questions regarding these discharge instructions please call the ED at [phone]. SAFETY INFORMATION: In the interest of safety, wellness, and injury prevention; we encourage you to wear your sealbelt, if you smoke; quite smoking, and we encourage family to use a protective helmet for bicycling and other sporting events that present an increased risk for head injury. IF YOUR SYMPTOMS WORSEN OR NEW SYMPTOMS DEVELOP, OR YOU HAVE CONCERNS ABOUT YOUR CONDITION; OR IF YOUR CONDITION WORSENS WHILE YOU ARE WAITING FOR YOUR FOLLOW UP APPOINTMENT; EITHER CONTACT YOUR PRIMARY CARE DOCTOR, THE PHYSICIAN WHOSE NAME AND NUMBER YOU WERE GIVEN, OR RETURN TO THE ED IMMEDIATELY. ANGELIQUE RAMOS APRN Nov 08, 2020 20:04 TARYN IRBY DO Nov 09, 2020 04:02
== END 2020-11-08 20:10 | disposition home or self-care (01) ==
LOC: ER 18:41
DX: M06.862 Other specified rheumatoid arthritis, left knee (principal); M06.872 Other specified rheumatoid arthritis, left ankle and foot; M06.871 Other specified rheumatoid arthritis, right ankle and foot; I10 Essential (primary) hypertension
CPT/HCPCS: 96372; 99283; J1170

== ENCOUNTER 2021-06-16 12:12 | Emergency (ER) | payer OTHER ==
[~2021-06-16] VITALS: Ht 165.1 cm; Wt 92.6 kg
[~2021-06-16 12:12] MED LIST changes: +POTA-121 PO; -POTA20TA4 PO
[2021-06-16 12:37] VITALS: BP 158/78
[2021-06-16] MEDS ORDERED: DEXAMETHASONE 4 MG TABLET PO ONE (13:00)
--- NOTE | 2021-06-16 13:22 | PHYS DOC ---
Past History Past Medical History: Arthritis, Diabetes, Hypertension, Seizure Additional Past Medical Histor: RA Past Surgical History: Cholecystectomy, Tubal ligation Alcohol Use: None General Adult EDM: Chief Complaint: SORE THROAT HPI: HPI: Patient is a 40-year-old female who presents with complaints of sore throat and a hoarse voice since waking this morning. Patient took 2 325 mg Tylenol this morning at 7 AM with no improvement. Patient unable to eat breakfast because it hurt her throat to swallow. No known exposure to COVID. Has not had COVID- vaccine. Lives with and 2 children. Her currently has cold symptoms one of her children currently has nasal congestion. Denies fever, nausea, vomiting, chest pain or shortness of breath. Reports symptoms feel similar to when she had strep 5 years ago. Review of Systems: Review of Systems: Constitutional: Denies fever or chills Eyes: Denies redness or eye pain HENT: Denies nasal congestion. Reports sore throat and hoarse voice Respiratory: Denies cough or shortness of breath Cardiovascular: Denies chest pain or palpitations GI: Denies abdominal pain, nausea, or vomiting : Denies dysuria or hematuria Neurologic: Denies headache, focal weakness or sensory changes Complete systems were reviewed and found to be within normal limits, except as documented in this note. Current Medications: Current Meds: Current Medications Medications (Trade) Dose Ordered Sig/Nino Start Time Stop Time Status Last Admin Dose Admin Dexamethasone (Decadron) 10 mg 1X ONCE 06/16/21 13:00 06/16/21 13:01 DC Allergies: Allergies: Allergies Coded Allergies Type Severity Reaction Last Updated Verified No Known Drug Allergies 05/04/20 No Physical Exam: PE: Constitutional: Well developed, well nourished, no acute distress, non-toxic appearance HENT: Normocephalic, atraumatic. Bilateral tympanic membranes visualized and intact without purulence erythema or air-fluid line. Bilateral naris and turbinates without edema, erythema, or rhinorrhea Eyes: conjunctiva normal, no discharge Neck: Normal range of motion, no tenderness, supple. Mild LAD Lungs & Thorax: No respiratory distress, equal chest rise and fall. CTAB Cardiovascular: Regular rate and rhythm Skin: Warm, dry, no erythema, no rash Neurologic: Alert and oriented X 3, normal motor function, normal sensory function, no focal deficits noted Psychologic: Affect normal, judgment normal Current Patient Data: Vital Signs: Vital Signs Date Time Temp Pulse Resp B/P (MAP) Pulse Ox O2 Delivery O2 Flow Rate FiO2 06/16/21 12:37 97.0 75 18 158/78 (104) 99 Room Air Heart Score: C/O Chest Pain: N/A Course & Med Decision Making: Course & Med Decision Making Patient presents with sore throat and hoarse voice since this morning. Rapid strep and COVID PCR ordered. One time dose dexamethasone given with discussion on importance of monitoring and controlling blood sugars with a healthy diet over the next several days. Patient stable for discharge with outpatient follow-up with PCP. Discussed findings and plan with patient, who acknowledges understanding and agreement. Lisaon Disclaimer: Marium Disclaimer: This electronic medical record was generated, in whole or in part, using a voice recognition dictation system. Departure Departure: Impression: Primary Impression: Laryngitis Disposition: HOME / SELF CARE / HOMELESS Condition: STABLE Referrals: EILEEN ROMO DO (PCP) Patient Instructions: Laryngitis, [id number] Additional Instructions: Use over the counter Tylenol and/or Ibuprofen for pain or discomfort or for fever > 100.5F. A strep culture and a COVID swap have been sent and are pending at this time. You have been tested for or diagnosed with COVID-19. It is an infection caused by a new type of coronavirus. COVID-19 will cause cold-like or mild flu symptoms in most. It can cause more severe symptoms like problems breathing in some. There is no treatment for COVID-19. The body will clear the infection over time. Self-care will help to ease discomfort. Steps to Take: Self-Care Rest as needed. Healthy habits may help you feel better. Steps include: Choose healthy foods including fruits and vegetables. Drink water throughout the day. Get plenty of sleep each night. If you smoke, try to quit. It may ease breathing. Avoid alcohol. Keep Others Healthy The virus can spread to others. Droplets are released every time you sneeze or cough. The droplets can get into the mouth, nose, or eyes of people near you and lead to infection. To lower the chances of spreading COVID-19 to others: Stay at home until your doctor has said it is safe to leave. If you tested positive this will mean staying isolated until both of the following are true: At least 7 days have passed since the start of illness. You are free of fever for at least 72 hours without the use of medicine. During this time: - Avoid public areas, events, or transportation. Do not return to work or school until your doctor has said it is safe to do so. - Call ahead if you need to go to a medical center. Let them know you may have COVID-19. It will help them guide you where to go. They may also ask you to wear a facemask when you come to the office. - If you call for emergency medical services, let them know you may have COVID- 19. While at home: - Try to avoid close contact with others. Stay about 6 feet away. - If possible, spend most of your time in a separate room from others. - Use a face mask if you will be in close contact with others such as sharing a room or vehicle. - Have someone wipe down common surfaces in the home. Use household railway signalling engineer every day on areas like doorknobs, counters, or sinks. - Cough or sneeze into a tissue. Throw the tissue away right after use. If a tissue is not available, cough or sneeze into your elbow. - Wash your hands often. Wash them after sneezing or coughing. Use soap and water and wash for at least 20 seconds. Alcohol based hand supervisor bottle house cleaners can be used if soap and water is not available. - Do not prepare food for others. Avoid sharing personal items like forks, spoons, or toothbrushes. - Avoid close contact with pets while you are sick. There is no evidence of the virus passing to pets. This is a safety step until more is known about this virus. Isolation can be frustrating. Social interaction can help. Keep in touch with friends and family through phone and tech options. You can still interact with others in your home, just keep a safe distance of about 6 feet. Follow-up: Your doctors office will check in with you to see if there are any changes in your health. You may be asked to keep track of symptoms to share with them. They will also let you know when you are clear to be in public again. Problems to Look Out For: Contact your doctor if your recovery is not going as you expect. Get emergency care if you have problems such as: - Trouble breathing - Nonstop chest pain or pressure - Changes in awareness, confusion, or problems waking - Lips or face have bluish color - Worsening of symptoms If you think you have an emergency, call for emergency medical services right away. [facility]ELIQUE CRUZ DO Jun 16, 2021 13:22
== END 2021-06-16 14:30 | disposition home or self-care (01) ==
LOC: ER 12:12
DX: J04.0 Acute laryngitis (principal); M19.90 Unspecified osteoarthritis, unspecified site; E11.9 Type 2 diabetes mellitus without complications; I10 Essential (primary) hypertension; M06.9 Rheumatoid arthritis, unspecified; Z20.822 Contact with and (suspected) exposure to COVID-19
CPT/HCPCS: 87070; 87880; 99283; J8540; U0003

== ENCOUNTER 2021-06-18 20:12 | Observation (INO) | payer OTHER ==
[~2021-06-18] VITALS: Ht 165.1 cm; Wt 91.4 kg
--- NOTE | 2021-06-18 20:19 | PHYS DOC ---
Past History Past Medical History: Arthritis, Diabetes, Hypertension, Seizure Additional Past Medical Histor: RA Past Surgical History: Cholecystectomy, Tubal ligation Alcohol Use: None General Adult HPI: HPI: ".. I guess I had a seizure..I did miss a depakote last night..." Patient is a 40 year old FEMALE dependent who presents with above hx and complaints of seizure activity. Pt. report non-compliance with meds yesterday. Pt. reports has chronic seizure disorder. Pt. has had prior hx of admit for seizure after non- compliance in 08/03/20. Pt. has past medical history rheumatoid arthritis, seizure disorder, anemia, hypertension, OA cholesterol.,. Patient is non-smoker. Patient denies alcohol use. The pt. follows at [facility]. Patient denies any recent travel. No specific ill contacts. No history of immunosuppression. Review of Systems: Review of Systems: Constitutional: Denies fever or chills Eyes: Denies change in visual acuity HENT: Denies nasal congestion or sore throat Respiratory: Denies cough or shortness of breath Cardiovascular: Denies chest pain or edema GI: Denies abdominal pain, nausea, vomiting, bloody stools or diarrhea : Denies dysuria Musculoskeletal: Denies back pain or joint pain Integument: Denies rash Neurologic: History of tonic-clonic seizure Endocrine: Denies polyuria or polydipsia Lymphatic: Denies swollen glands Psychiatric: Denies depression or anxiety Family History: Family History: Noncontributory to presentation. Current Medications: Current Meds: See nursing for home meds Allergies: Allergies: Allergies Coded Allergies Type Severity Reaction Last Updated Verified No Known Drug Allergies 05/04/20 No Physical Exam: PE: Constitutional: Moderate acute distress, non-toxic appearance. [] HENT: Normocephalic, atraumatic, bilateral external ears normal, oropharynx moist, no oral exudates, nose normal. [] Eyes: PERRLA, EOMI, conjunctiva normal, no discharge. [] Neck: Normal range of motion, no tenderness, supple, no stridor. [] Cardiovascular:Tachycardia Heart rate regular rhythm, no murmur [] Lungs & Thorax: Bilateral breath sounds rhonihic Rt upper on auscultation [] Abdomen: Bowel sounds decreased. , soft, no tenderness, no masses, no pulsatile masses. [] Skin: Warm, dry, no erythema, no rash. [] Back: No tenderness, no CVA tenderness. [] Extremities: No tenderness, no cyanosis, no clubbing, ROM intact, no edema. [] Neurologic: Alert and oriented X 3, normal motor function, normal sensory function, no focal deficits noted. DTR + 2 patella, supervisor pole yard equal. No drift. Psychologic: Affect anxious, judgement normal, mood normal. [] EKG: EKG: My interpretation of EKG shows a sinus tachycardia 109 bpm. There are bimodal P wave. There is ST strain pattern. Abnormal EKG. My interpretation this EKG was at 2022 hrs. [] Radiology/Procedures: Radiology/Procedures: [][address] [address] IMAGING REPORT Signed PATIENT: JELANI FREEDMANOUNT: [id number] : 1980 LOCATION: ER AGE: 40 SEX: F EXAM STATUS: REG ER ORD. PHYSICIAN: OSMIN AUSTIN MD REASON: sz, rhonchi PROCEDURE: PORTABLE CHEST 1V EXAM: XR CHEST 1V 06/18/2021 8:34 PM CLINICAL INDICATION: Seizure, rhonchi COMPARISON: Chest radiograph 05/04/2020 TECHNIQUE: AP view of the chest FINDINGS: The heart and mediastinum are normal. Lungs are well-expanded and clear. No consolidation, pleural effusion, or pneumothorax. Pulmonary vascularity is normal. The thoracic skeleton is intact. IMPRESSION: Normal chest radiograph. Electronically signed by: Celina Lockwood MD (06/18/2021 9:20 PM) [id number] DICTATED AND SIGNED BY: CELINA LOCKWOOD MD DATE: 06/18/212119 CC: EILEEN RUST DO; OSMIN AUSTIN MD ~MTH0 [address] [address] IMAGING REPORT Signed PATIENT: JELANI FREEDMAN LACCOUNT: [id number] : 1980 LOCATION: ER AGE: 40 SEX: F EXAM STATUS: REG ER ORD. PHYSICIAN: OSMIN AUSTIN MD REASON: seizure PROCEDURE: CT HEAD WO CONTRAST CT scan of the head without contrast 06/18/2021 Clinical History: Seizure. Technique: Unenhanced, contiguous, 5 mm axial sections were obtained through the head. One or more of the following individualized dose reduction techniques were utilized for this study: 1. Automated exposure control. 2. Adjustment of the mA and/or kV according to patient size. 3. Use of iterative reconstruction technique. Findings: Comparison study is dated 08/03/2020. The ventricles and sulci are within normal limits in size and configuration. No acute parenchymal abnormality is seen. No extra-axial fluid collection is noted. No skull fracture is seen. Impression: No acute intracranial abnormality is seen. Electronically signed by: Mike Lynn MD (06/18/2021 9:01 PM) [id number] DICTATED AND SIGNED BY: MIKE LYNN MD DATE: 06/18/212057 CC: EILEEN RUST DO; OSMIN AUSTIN MD ~MTH0 0 Heart Score: C/O Chest Pain: Yes HEART Score for Chest Pain: HEART Score for Chest Pain Response (Comments) Value History Moderately Suspicious 1 ECG Nonspecific Repolarizatio 1 Age < 45 0 Risk Factors 1 or 2 Risk Factors 1 Troponin >1-<3x Normal Limit 1 Total 4 Risk Factors: Risk Factors: DM, Current or recent (<one month) smoker, HTN, HLP, family history of CAD, obesity. Risk Scores: Score 0 - 3: 2.5% MACE over next 6 weeks - Discharge Home Score 4 - 6: 20.3% MACE over next 6 weeks - Admit for Clinical Observation Score 7 - 10: 72.7% MACE over next 6 weeks - Early Invasive Strategies Course & Med Decision Making: Course & Med Decision Making Pertinent Labs and Imaging studies reviewed. (See chart for details) Discussed presentation, testing and tx.plan with Dr. Huerta. Admit to his service with Cardiology and Neurology consults. Note computer- malfunction- may have loss dictation. Report [id number]# M ultiple call to [phone] Impression: 1. History of chronic seizure disorder-breakthrough seizure 2. Elevated troponin 126 3. Diabetes-329 4. Leukocytosis 11.4 5. Anemia -hemoglobin 11.8 6. Elevated troponin 126 7. Thrombocytosis 548 8. Sub Therapeutic Valpor[place] < 3 9. Rapid COVID Negative [] Dragon Disclaimer: Marium Disclaimer: This electronic medical record was generated, in whole or in part, using a voice recognition dictation system. Departure Departure: Referrals: EILEEN RUST DO (PCP) Marium Disclaimer This chart was dictated in whole or in part using Voice Recognition software in a busy, high-work load, and often noisy Emergency Department environment. It may contain unintended and wholly unrecognized errors or omissions. OSMIN AUSTIN MD Jun 18, 2021 20:19
[2021-06-18] MEDS ORDERED: IV RINGERS SOLUTION,LACTATED 1,000 ML IV SCH (20:30)
[2021-06-18] MEDS ORDERED: LORazepam 1 MG TABLET PO ONE (20:30)
[2021-06-18] MEDS ORDERED: DIVALPROEX SODIUM 125 MG TABLET.DR. PO ONE ×2 (20:45)
--- NOTE | 2021-06-18 21:03 | RAD ---
CT scan of the head without contrast 06/18/2021 Clinical History: Seizure. Technique: Unenhanced, contiguous, 5 mm axial sections were obtained through the head. One or more of the following individualized dose reduction techniques were utilized for this study: 1. Automated exposure control. 2. Adjustment of the mA and/or kV according to patient size. 3. Use of iterative reconstruction technique. Findings: Comparison study is dated 08/03/2020. The ventricles and sulci are within normal limits in size and configuration. No acute parenchymal abn ormality is seen. No extra-axial fluid collection is noted. No skull fracture is seen. Impression: No acute intracranial abnormality is seen. Electronically signed by: Mike Lynn MD (06/18/2021 9:01 PM) [id number]
[2021-06-18 21:20] LABS: BASO # 0.1 x10^3/uL (0.0-0.2); BASO % 1 % (0-3); EOS # 0.1 x10^3/uL (0.0-0.7); EOS % 1 % (0-3); HEMATOCRIT 36.9 % (36.0-47.0); HEMOGLOBIN 11.8 g/dL (12.0-15.5); LYMPH # 3.3 x10^3/uL (1.0-4.8); LYMPH % 29 % (24-48); MEAN CORPUSCULAR HEMOGLOBIN 24 pg (25-35); MEAN CORPUSCULAR HGB CONC 32 g/dL (31-37); MEAN CORPUSCULAR VOLUME 76 fL (79-100); MONO # 0.6 x10^3/uL (0.0-1.1); MONO % 6 % (0-9); NEUT # 7.3 x10^3uL (1.8-7.7); NEUT % 64 % (31-73); PLATELET COUNT 548 x10^3/uL (140-400); RED BLOOD COUNT 4.87 x10^6/uL (3.50-5.40); RED CELL DISTRIBUTION WIDTH 17.2 % (11.5-14.5); WHITE BLOOD COUNT 11.4 x10^3/uL (4.0-11.0)
[2021-06-18 21:21] LABS: CALCIUM 8.7 mg/dL (8.5-10.1); CREATININE 1.1 mg/dL (0.6-1.0); GFR 55.3; POTASSIUM 3.5 mmol/L (3.5-5.1)
--- NOTE | 2021-06-18 21:22 | RAD ---
EXAM: XR CHEST 1V 06/18/2021 8:34 PM CLINICAL INDICATION: Seizure, rhonchi COMPARISON: Chest radiograph 05/04/2020 TECHNIQUE: AP view of the chest FINDINGS: The heart and mediastinum are normal. Lungs are well-expanded and clear. No consolidatio n, pleural effusion, or pneumothorax. Pulmonary vascularity is normal. The thoracic skeleton is int act. IMPRESSION: Normal chest radiograph. Electronically signed by: Celina Lockwood MD (06/18/2021 9:20 PM) [id number]
[2021-06-18 21:31] LABS: VAL ACID < 3 mcg/mL (50-100)
[2021-06-18 21:32] LABS: ALBUMIN 3.1 g/dL (3.4-5.0); DIRECT BILIRUBIN 0.1 mg/dL (0.0-0.2); MAGNESIUM 1.7 mg/dL (1.8-2.4); TOTAL BILIRUBIN 0.2 mg/dL (0.2-1.0); TOTAL PROTEIN 6.8 g/dL (6.4-8.2)
[2021-06-18 21:54] LABS: BARBITURATES NEG (NEG); BENZODIAZEPINES NEG (NEG); CANNABINOIDS NEG (NEG); COCAINE NEG (NEG); METHADONE NEG (NEG); OPIATES NEG (NEG); PHENCYCLIDINE NEG (NEG)
[2021-06-18 21:56] LABS: AMPHETAMINE/METHAMPHETAMINE NEG (NEG)
[2021-06-18 21:57] LABS: INFLUENZA A PATIENT NEGATIVE (NEGATIVE); INFLUENZA B PATIENT NEGATIVE (NEGATIVE)
[2021-06-18 22:07] LABS: BILIRUBIN,URINE NEG (NEG); CLARITY,URINE CLEAR; COLOR,URINE YELLOW; GLUCOSE,URINE 500 mg/dL (NEG); NITRITE,URINE NEG (NEG); UROBILINOGEN,URINE 0.2 mg/dL (0.2 mg/dL)
[2021-06-18 22:08] LABS: BACTERIA,URINE FEW /HPF (0-FEW); RBC,URINE OCC /HPF (0-2); SQUAMOUS EPITHELIAL CELL,UR FEW /LPF
[2021-06-18] MEDS ORDERED: CONTRAST GIVEN. MC PRN (22:15)
[2021-06-18] MEDS ORDERED: NITROGLYCERIN OINT 1 GM PACKET. TP ONE (22:30)
[2021-06-18] MEDS ORDERED: IOHEXOL 350 MG/ML 100 ML VIAL. IV ONE (22:30)
[2021-06-18] MEDS ORDERED: ASPIRIN 325 MG TABLET PO ONE (22:30)
[2021-06-18] MEDS ORDERED: ENOXAPARIN ** NOTE DOSE ** SYRINGE SQ ONE (22:30)
--- NOTE | 2021-06-18 22:59 | RAD ---
EXAMINATION: CT Pulmonary Angiogram with IV contrast INDICATION: Reason: dyspnea, elevated D-dimer Omni 350 100cc / Spl. Instructions: / History: COMPARISON: Same-day chest radiograph TECHNIQUE: Using helical technique, CT data from the thoracic inlet through the upper abdomen was obt ained during rapid IV contrast infusion. The examination was timed to the pulmonary arterial system t o generate a CT angiographic study. 3D MIPS, sagittal and coronal reformats were generated. FINDINGS: Vascular: The study is diagnostic to the level of the segmental pulmonary arteries. There is adequate opacifica tion of pulmonary arteries. Pulmonary arteries: No evidence of acute or chronic pulmonary embolism. The pulmonary trunk is dilate d up to 3.1 cm which can be seen in the setting of pulmonary arterial hypertension. Thoracic aorta: Normal in size. Coronary arteries: Normal origins. No detectable calcified coronary atherosclerosis. Systemic veins: Within normal limits. Heart: The heart is normal in size. No pericardial effusion. Chest: Lungs/Pleura: Patchy groundglass opacities in a bronchovascular distribution in the left upper lobe. No pleural effusion or focal pleural lesion. Mediastinum: No pathologic mediastinal or hilar adenopathy The visualized thyroid is unremarkable. Mi ld distal esophageal wall thickening may relate to reflux dysphagia process. Small hiatal hernia. Axilla/Soft Tissue: No supraclavicular or axillary adenopathy. Regional soft tissues are within little l limits. Upper abdomen: There is diffuse hepatic steatosis. Gallbladder is surgically absent. No evidence of a cute process in the visualized upper abdomen. Bones: No evidence of acute fractures or aggressive osseous lesions. IMPRESSION: Vascular: 1. No evidence of pulmonary embolism. Chest: 1. Patchy groundglass opacities in a bronchovascular distribution in the left upper lobe favoring a i nfectious or inflammatory etiology. 2. Mild distal esophageal wall thickening may relate to reflux dysphagia process. Upper endoscopy cou ld be of benefit. 3. Hepatic steatosis. PRQS compliance statement - One or more of the following individualized dose reduction techniques wer e utilized for this study: 1. Automated exposure control 2. Adjustment of the mA and/or kV according to patient size 3. Use of iterative reconstruction technique Electronically signed by: Moris Rivas DO (06/18/2021 10:56 PM) [facility]
[2021-06-18] MEDS ORDERED: ONDANSETRON PF 4 MG/2 ML VIAL. IVP PRN (23:15)
[2021-06-18] MEDS ORDERED: INSULIN REGULAR 100 UNIT/ML 3ML VIAL. IV ONE ×2 (23:30)
[2021-06-19] MEDS ORDERED: IV NORMAL SALINE 50ML 50 ML ONE (00:35)
[2021-06-19] MEDS ORDERED: VALPROATE SODIUM 500 MG/5 ML VIAL IV ONE (00:36)
[2021-06-19] MEDS: VALPROATE SODIUM 500 MG in IV NORMAL SALINE 50ML 50 ML IV SCH ×3 (00:39→14:00)
--- NOTE | 2021-06-19 00:57 | EKG ---
[address] [address] Test Date: 2021-06-18 Test Time: 20:22:05 Pat Name: JELANI FREEDMAN Department: Room: Gender: F Mgmt Analyst: HR1 : 1980 Requested By: OSMIN AUSTIN Order Number: [id number] Reading MD: Victorino Ratliff MD Measurements Intervals [place] Rate: 109 P: 51 [place]: 136 QRS: 106 QRSD: 90 T: -4 QT: 350 QTc: 473 Interpretive Statements SINUS TACHYCARDIA RIGHT FOSTER AXIS - MAY BE NORMAL FOR AGE NON-SPECIFIC ST/T CHANGES Electronically Signed On 06-21-2021 8:51:36 EXPERIMENTAL PREFLIGHT MECHANIC by Victorino Ratliff MD
--- NOTE | 2021-06-19 01:30 | NUR ---
The patient, JELANI FREEDMAN, 40 y/o, F admitted by ОЛЬГА SANCHEZ MD, was given written information regarding hospital policies, unit procedures and contact persons. Valuables were checked and vitals obtained. Pt is admitted for seizure, elevated trops and elevated d-dimer. Pt is A&Ox4 able to express own concerns. Also she is on room air able to ambulate to toilet. Currently pt has no complaints or discomfort. Will continue to monitor.
[2021-06-19 02:01] VITALS: BP 175/99
[2021-06-19] MEDS ORDERED: DIVA500T2 PO (02:43)
[2021-06-19] MEDS ORDERED: TOFA11TA PO (02:43)
[2021-06-19] MEDS ORDERED: ARIP15TA36 PO (02:43)
[2021-06-19] MEDS ORDERED: SITA1TAB11 PO (02:43)
[2021-06-19] MEDS: ACETAMINOPHEN 325 MG TABLET PO PRN ×2 (04:02→08:55)
[2021-06-19] MEDS ORDERED: LOSA100T14 PO (04:45)
[2021-06-19] MEDS ORDERED: METO-247 PO (04:45)
[2021-06-19] MEDS ORDERED: AMLO-187 PO (04:45)
[2021-06-19 05:00] VITALS: BP 165/92
[2021-06-19] MEDS ORDERED: LOSARTAN 50 MG TABLET. ONE (06:40)
[2021-06-19] MEDS ORDERED: amLODIPine BESYLATE 10 MG TABLET ONE (06:41)
[2021-06-19] MEDS ORDERED: METOPROLOL SUCC 24HR ER 50 MG TAB.ER.24H. PO ONE (06:41)
--- NOTE | 2021-06-19 06:41 | EKG ---
[address] [address] Test Date: 2021-06-18 Test Time: 20:22:05 Pat Name: JELANI FREEDMAN Department: Room: 119 A Gender: F Educational Director: HR1 : 1980 Requested By: OSMIN AUSTIN Order Number: [id number] Reading MD: Victorino Ratliff MD Measurements Intervals [place] Rate: 109 P: 51 [place]: 136 QRS: 106 QRSD: 90 T: -4 QT: 350 QTc: 473 Interpretive Statements SINUS TACHYCARDIA RIGHT FOSTER AXIS Electronically Signed On 06-21-2021 8:52:17 CYBER SECURITY SYSTEMS ENGINEER by Victorino Ratliff MD
[2021-06-19 07:54] LABS: CALCIUM 7.8 mg/dL (8.5-10.1); GFR 61.7; POTASSIUM 3.2 mmol/L (3.5-5.1)
[2021-06-19 07:57] LABS: BASO # 0.1 x10^3/uL (0.0-0.2); BASO % 0 % (0-3); EOS # 0.2 x10^3/uL (0.0-0.7); EOS % 2 % (0-3); HEMATOCRIT 35.5 % (36.0-47.0); HEMOGLOBIN 11.1 g/dL (12.0-15.5); LYMPH # 2.7 x10^3/uL (1.0-4.8); LYMPH % 19 % (24-48); MEAN CORPUSCULAR HEMOGLOBIN 24 pg (25-35); MEAN CORPUSCULAR HGB CONC 31 g/dL (31-37); MEAN CORPUSCULAR VOLUME 76 fL (79-100); MONO # 0.8 x10^3/uL (0.0-1.1); MONO % 6 % (0-9); NEUT # 10.7 x10^3uL (1.8-7.7); NEUT % 74 % (31-73); PLATELET COUNT 535 x10^3/uL (140-400); RED BLOOD COUNT 4.68 x10^6/uL (3.50-5.40); RED CELL DISTRIBUTION WIDTH 16.8 % (11.5-14.5); WHITE BLOOD COUNT 14.5 x10^3/uL (4.0-11.0)
[2021-06-19] MEDS ORDERED: IPRATRPIUM/ALBUTEROL 0.5/2.5MG 3 ML NEBU. NEB SCH (08:00)
[2021-06-19] MEDS ORDERED: ASPIRIN CHEWABLE 81 MG TABLET. PO SCH (08:00)
--- NOTE | 2021-06-19 08:23 | PDOC2 ---
JOSESITO PETER POLITICAL CARTOONIST 06/19/21 0823: CARDIAC CONSULT DATE OF CONSULT DOS: DATE: 06/19/21 TIME: 08:13 REASON FOR CONSULT Reason for Consult Elevated troponin Tachycardia REFERRING PHYSICIAN Referring Physician Dr. Richardson SOURCE Source: Chart review, Patient HPI History of Present Illness This is a 40 yo female who presented secondary to seizure. Troponin level noted to be mildly elevated, which prompted this consult. Patient does have a history of seizure disorder. Report that she forgot to take her Depakote yesterday.Patient does have a history of breakthrough seizures secondary to noncompliance. She denies any chest pain, palpitations, dizziness, diaphoresis, or nausea/vomiting. No recent illness/fevers. Reports feeling tired/fatigued this morning. PAST MEDICAL HISTORY Cardiovascular: HTN, hyperipidemia Pulmonary: Asthma CENTRAL NERVOUS SYSTEM: Seizure Psych: Depression Musculoskeletal: Osteoarthritis Rheumatologic: Rheumatoid arthritis Endocrine: Diabetes PAST SURGICAL HISTORY Past Surgical History: Cholecystectomy, Tubal Ligation FAMILY HISTORY Family History: High Cholestrol, Hypertension SOCIAL HISTORY Smoke: No ALCOHOL: none Drugs: None Lives: with Family CURRENT MEDICATIONS Current Medications Current Medications Lactated Ringer's 1,000 ml @ 1,000 mls/hr Q1H IV Last administered on 06/18/21at 20:59; Start 06/18/21 at 20:30; Stop 06/18/21 at 21:29; Status DC Lorazepam (Ativan) 1 mg 1X ONCE PO Last administered on 06/18/21at 21:00; St art 06/18/21 at 20:30; Stop 06/18/21 at 20:44; Status DC Divalproex Sodium (Depakote) 1,000 mg 1X ONCE PO Last administered on 06/18/21at 21:00; Start 06/18/21 at 20:45; Stop 06/18/21 at 20:48; Status DC Divalproex Sodium (Depakote) 500 mg 1X ONCE PO ; Start 06/18/21 at 20:45; Stop 06/18/21 at 20:46; Status UNV Enoxaparin Sodium (Lovenox 100mg Syringe) 90 mg 1X ONCE SQ Last administered on 06/18/21at 22:42; Start 06/18/21 at 22:30; Stop 06/18/21 at 22:31; Status DC Nitroglycerin (Nitro-Bid Oint) 1 inch 1X ONCE TP Last administered on 06/18/21at 22:42; Start 06/18/21 at 22:30; Stop 06/18/21 at 22:31; Status DC Aspirin (Ángel Aspirin) 325 mg 1X ONCE PO Last administered on 06/18/21at 22:39; Start 06/18/21 at 22:30; Stop 06/18/21 at 22:31; Status DC Iohexol (Omnipaque 350 Mg/ml) 100 ml 1X ONCE IV Last administered on 06/18/21at 22:18; Start 06/18/21 at 22:30; Stop 06/18/21 at 22:31; Status DC Info (Do NOT chart on this entry -- for MONITORING) 1 each PRN DAILY PRN MC SEE COMMENTS; Start 06/18/21 at 22:15; Stop 06/20/21 at 22:14 Ondansetron HCl (Zofran) 4 mg PRN Q4HRS PRN IVP NAUSEA/VOMITING; Start 06/18/21 at 23:15; Stop 06/19/21 at 23:14 Acetaminophen (Tylenol) 650 mg PRN Q4HRS PRN PO FEVER > 100.3'F Last administered on 06/19/21at 04:02; Start 06/18/21 at 23:15; Stop 06/19/21 at 23:14 Albuterol/ Ipratropium (Duoneb) 3 ml RTQID NEB ; Start 06/19/21 at 08:00; Stop 06/20/21 at 07:59 Aspirin (Aspirin Chewable) 81 mg DAILYWBKFT PO ; Start 06/19/21 at 08:00; Stop 06/20/21 at 07:59 Enoxaparin Sodium (Lovenox 100mg Syringe) 90 mg BID SQ ; Start 06/19/21 at 09:00; Stop 06/20/21 at 08:59 Nitroglycerin (Nitro-Bid Oint) 1 inch TID TP ; Start 06/19/21 at 09:00 Insulin Human Regular (HumuLIN R VIAL) 10 unit 1X ONCE IV Last administered on 06/19/21at 00:23; Start 06/18/21 at 23:30; Stop 06/18/21 at 23:31; Status DC Valproic Acid 500 mg/Sodium Chloride 55 ml @ 55 mls/hr Q8HRS IV Last adm inistered on 06/19/21at 00:39; Start 06/19/21 at 00:00 Lorazepam (Ativan Inj) 1 mg 1X PRN PRN IVP SEIZURE; Start 06/18/21 at 23:30 Insulin Human Regular (HumuLIN R VIAL) 10 unit 1X ONCE IV ; Start 06/18/21 at 23:30; Stop 06/18/21 at 23:31; Status UNV Sodium Chloride 50 ml @ As Directed STK-MED ONCE .ROUTE ; Start 06/19/21 at 00:35; Stop 06/19/21 at 00:35; Status DC Valproic Acid (Depacon) 500 mg STK-MED ONCE IV ; Start 06/19/21 at 00:36; Stop 06/19/21 at 00:36; Status DC Amlodipine Besylate (Norvasc) 10 mg DAILY PO Last administered on 06/19/21at 06:43; Start 06/19/21 at 09:00 Aripiprazole (Abilify) 15 mg DAILY PO ; Start 06/19/21 at 09:00 Divalproex Sodium (Depakote) 1,000 mg TID PO ; Start 06/19/21 at 09:00 Lacosamide (Vimpat) 200 mg BID PO ; Start 06/19/21 at 09:00 Losartan Potassium (Cozaar) 100 mg DAILY PO Last administered on 06/19/21at 06:43; Start 06/19/21 at 09:00 Metoprolol Succinate (Toprol Xl) 100 mg DAILY PO Last administered on 06/19/21at 06:42; Start 06/19/21 at 09:00 Non-Formulary Medication (Sitagliptin Phos/Metformin Hcl (Janumet 50-1,000 Mg Tablet)) 1 tab BID PO ; Start 06/19/21 at 09:00; Status UNV Non-Formulary Medication (Tofacitinib Citrate (Xeljanz Xr)) 11 mg DAILY PO ; Start 06/19/21 at 09:00; Status UNV Losartan Potassium (Cozaar) 50 mg STK-MED ONCE .ROUTE ; Start 06/19/21 at 06:40; Stop 06/19/21 at 06:41; Status DC Amlodipine Besylate (Norvasc) 10 mg STK-MED ONCE .ROUTE ; Start 06/19/21 at 06:41; Stop 06/19/21 at 06:41; Status DC Metoprolol Succinate (Toprol Xl) 50 mg STK-MED ONCE PO ; Start 06/19/21 at 06:41; Stop 06/19/21 at 06:41; Status DC Active Scripts Active Reported Amlodipine Besylate 10 Mg Tablet 1 Tab PO DAILY Losartan Potassium 100 Mg Tablet 1 Tab PO DAILY Metoprolol Succinate ( Xl ) (Metoprolol Succinate) 100 Mg Tab.er.24h 1 Tab PO DAILY Depakote (Divalproex Sodium) 500 Mg Tablet.dr 2 Tab PO TID Xeljanz Xr (Tofacitinib Citrate) 11 Mg Tab.er.24h 11 Mg PO DAILY Abilify (Aripiprazole) 15 Mg Tablet 1 Tab PO DAILY 30 Days Janumet 50-1,000 Mg Tablet (Sitagliptin Phos/Metformin Hcl) 1 Each Tablet 1 Tab PO BID Vimpat (Lacosamide) 200 Mg Tablet 200 Mg PO BID Take today PM. DATE: TIME: NEXT DOSE DUE: DATE: TIME: ALLERGIES Allergies: Coded Allergies: No Known Drug Allergies (Unverified , 05/04/20) ROS Review of Systems 14 point ROS conducted with pertinent positives noted above in HPI PHYSICAL EXAM General: Alert, Oriented X3, Cooperative, No acute distress HEENT: Atraumatic VITALS Vital Signs Vital Signs Date Time Temp Pulse Resp B/P (MAP) Pulse Ox O2 Delivery O2 Flow Rate FiO2 06/19/21 06:43 110 165/92 06/19/21 05:00 98.2 48 96 Room Air LABS LABS Laboratory Tests Test 06/18/21 00:25 06/18/21 20:40 06/18/21 21:07 06/18/21 21:13 Troponin I High Sensitivity 137 ng/L (4-50) 126 ng/L (4-50) White Blood Count 11.4 x10^3/uL (4.0-11.0) Red Blood Count 4.87 x10^6/uL (3.50-5.40) Hemoglobin 11.8 g/dL (12.0-15.5) Hematocrit 36.9 % (36.0-47.0) Mean Corpuscular Volume 76 fL (79-100) Mean Corpuscular Hemoglobin 24 pg (25-35) Mean Corpuscular Hemoglobin Concent 32 g/dL (31-37) Red Cell Distribution Width 17.2 % (11.5-14.5) Platelet Count 548 x10^3/uL (140-400) Neutrophils (%) (Auto) 64 % (31-73) Lymphocytes (%) (Auto) 29 % (24-48) Monocytes (%) (Auto) 6 % (0-9) Eosinophils (%) (Auto) 1 % (0-3) Basophils (%) (Auto) 1 % (0-3) Neutrophils # (Auto) 7.3 x10^3uL (1.8-7.7) Lymphocytes # (Auto) 3.3 x10^3/uL (1.0-4.8) Monocytes # (Auto) 0.6 x10^3/uL (0.0-1.1) Eosinophils # (Auto) 0.1 x10^3/uL (0.0-0.7) Basophils # (Auto) 0.1 x10^3/uL (0.0-0.2) Sodium Level 139 mmol/L (136-145) Potassium Level 3.5 mmol/L (3.5-5.1) Chloride Level 96 mmol/L (98-107) Carbon Dioxide Level 32 mmol/L (21-32) Anion Gap 11 (6-14) Blood Urea Nitrogen 16 mg/dL (7-20) Creatinine 1.1 mg/dL (0.6-1.0) Estimated GFR (Cockcroft-Gault) 55.3 Glucose Level 329 mg/dL (70-99) Calcium Level 8.7 mg/dL (8.5-10.1) Magnesium Level 1.7 mg/dL (1.8-2.4) Total Bilirubin 0.2 mg/dL (0.2-1.0) Direct Bilirubin 0.1 mg/dL (0.0-0.2) Aspartate Amino Transf (AST/SGOT) 42 U/L (15-37) Alanine Aminotransferase (ALT/SGPT) 57 U/L (14-59) Alkaline Phosphatase 75 U/L (46-116) Creatine Kinase 71 U/L (26-192) FE-Qrt-E-Type Natriuretic Peptide 327 pg/mL (0-124) Total Protein 6.8 g/dL (6.4-8.2) Albumin 3.1 g/dL (3.4-5.0) Lipase 156 U/L (73-393) Valproic Acid (Depakene) Level < 3 mcg/mL (50-100) Valproic Acid Last Dose Date Unk Valproic Acid Last Dose Time Unk Urine Collection Type Unknown Urine Color Yellow Urine Clarity Clear Urine pH 7.0 Urine Specific [place] 1.020 Urine Protein Neg (NEG-TRACE) Urine Glucose (UA) 500 mg/dL (NEG) Urine Ketones (Stick) Trace mg/dL (NEG) Urine Blood Neg (NEG) Urine Nitrite Neg (NEG) Urine Bilirubin Neg (NEG) Urine Urobilinogen Dipstick 0.2 mg/dL (0.2 mg/dL) Urine Leukocyte Esterase Trace (NEG) Urine RBC Occ /HPF (0-2) Urine WBC 5-10 /HPF (0-4) Urine Squamous Epithelial Cells Few /LPF Urine Bacteria Few /HPF (0-FEW) Urine Opiates Screen Neg (NEG) Urine Methadone Screen Neg (NEG) Urine Barbiturates Neg (NEG) Urine Phencyclidine Screen Neg (NEG) Urine Amphetamine/Methamphetamine Neg (NEG) Urine Benzodiazepines Screen Neg (NEG) Urine Cocaine Screen Neg (NEG) Urine Cannabinoids Screen Neg (NEG) Urine Ethyl Alcohol Neg (NEG) Prothrombin Time 9.5 SEC (9.4-11.4) Prothromb Time International Ratio 0.9 (0.9-1.1) Activated Partial Thromboplast Time < 21 SEC (23-33) D-Dimer (Gretchen) 1.17 mg/L (0.00-0.50) Test 06/18/21 21:14 06/19/21 02:04 06/19/21 03:24 06/19/21 07:18 Influenza Type A (Rapid) Negative (NEGATIVE) Influenza Type B (Rapid) Negative (NEGATIVE) SARS-CoV-2 Antigen (Rapid) Negative (NEGATIVE) Troponin I High Sensitivity 151 ng/L (4-50) Glucose (Fingerstick) 182 mg/dL (70-99) White Blood Count 14.5 x10^3/uL (4.0-11.0) Red Blood Count 4.68 x10^6/uL (3.50-5.40) Hemoglobin 11.1 g/dL (12.0-15.5) Hematocrit 35.5 % (36.0-47.0) Mean Corpuscular Volume 76 fL (79-100) Mean Corpuscular Hemoglobin 24 pg (25-35) Mean Corpuscular Hemoglobin Concent 31 g/dL (31-37) Red Cell Distribution Width 16.8 % (11.5-14.5) Platelet Count 535 x10^3/uL (140-400) Neutrophils (%) (Auto) 74 % (31-73) Lymphocytes (%) (Auto) 19 % (24-48) Monocytes (%) (Auto) 6 % (0-9) Eosinophils (%) (Auto) 2 % (0-3) Basophils (%) (Auto) 0 % (0-3) Neutrophils # (Auto) 10.7 x10^3uL (1.8-7.7) Lymphocytes # (Auto) 2.7 x10^3/uL (1.0-4.8) Monocytes # (Auto) 0.8 x10^3/uL (0.0-1.1) Eosinophils # (Auto) 0.2 x10^3/uL (0.0-0.7) Basophils # (Auto) 0.1 x10^3/uL (0.0-0.2) Sodium Level 138 mmol/L (136-145) Potassium Level 3.2 mmol/L (3.5-5.1) Chloride Level 97 mmol/L (98-107) Carbon Dioxide Level 28 mmol/L (21-32) Anion Gap 13 (6-14) Blood Urea Nitrogen 12 mg/dL (7-20) Creatinine 1.0 mg/dL (0.6-1.0) Estimated GFR (Cockcroft-Gault) 61.7 Glucose Level 220 mg/dL (70-99) Calcium Level 7.8 mg/dL (8.5-10.1) Test 06/19/21 07:59 Glucose (Fingerstick) 232 mg/dL (70-99) ASSESSMENT/PLAN Assessment/Plan 1. Seizure, breakthrough; due to noncompliance with Depakote. CT head without acute findings. Patient does have history of breakthrough seizures secondary to noncompliance. 2. Hypertensive urgency; remains elevated 3. Mild troponin elevation; high sensitivity trop highest 151. Type II, demand ischemia in setting of above. CP free 4. Sinus tachycardia; reactive. Presently maintaining SR. 5. Hyperlipidemia 6. Diabetes, II 7. Hypokalemia, hypomagnesemia 8. Elevated d-dimer; CT head without acute findings Recommendations Lipids ASA Home antiHTN therapy resumed. Titrate therapy as warranted Hydralazine IV PRN Replace electrolytes Could consider outpatient echocardiogram Follow neuro recs Supportive care OUSMANE SERRANO MD 06/19/21 1348: CARDIAC CONSULT ASSESSMENT/PLAN Assessment/Plan Patient seen and examined. Agree with SOLE SPLITTER's assessment and plan. Slight troponin elevation probably demand ischemia. Sinus tachycardia physiologic, currently resolved. Resume home antihypertensives and titrate for better blood pressure control. Continue current management of seizures per neurology team. Will consider outpatient 2D echo and ischemic evaluation. Thank you for your consultation JOSESITO PETER APRN Jun 19, 2021 08:23 OUSMANE SERRANO MD Jun 19, 2021 13:48
[2021-06-19] MEDS ORDERED: POTASSIUM CHLORIDE 20 MEQ TABLET.ER. PO ONE (08:30)
[2021-06-19 08:52] VITALS: BP 122/81
[2021-06-19] MEDS: DIVALPROEX SODIUM 250 MG TABLET.DR. PO SCH ×2 (08:55→13:53)
[2021-06-19] MEDS ORDERED: NON FORMULARY ITEM (Tofacitinib Citrate (Xeljanz Xr) 11 MG) PO SCH (09:00)
[2021-06-19] MEDS ORDERED: ENOXAPARIN ** NOTE DOSE ** SYRINGE SQ SCH (09:00)
[2021-06-19] MEDS: NITROGLYCERIN OINT 1 GM PACKET. TP SCH ×2 (09:00→14:00)
[2021-06-19] MEDS ORDERED: METOPROLOL SUCC 24HR ER 50 MG TAB.ER.24H. PO SCH (09:00)
[2021-06-19] MEDS ORDERED: NON FORMULARY ITEM (Sitagliptin Phos/Metformin Hcl (Janumet 50-1,000 Mg Tablet) 1 TAB) PO SCH (09:00)
[2021-06-19] MEDS ORDERED: LOSARTAN 50 MG TABLET. PO SCH (09:00)
[2021-06-19] MEDS ORDERED: LACOSAMIDE 50 MG TABLET PO SCH (09:00)
[2021-06-19] MEDS ORDERED: ARIPiprazole 15 MG TABLET PO SCH (09:00)
[2021-06-19] MEDS ORDERED: amLODIPine BESYLATE 10 MG TABLET PO SCH (09:00)
--- NOTE | 2021-06-19 10:08 | CONS ---
DATE OF CONSULTATION: 06/19/2021 NEUROLOGY CONSULTATION REFERRING PHYSICIAN: Dr. Huerta. REASON FOR CONSULTATION: Breakthrough seizure. HISTORY OF PRESENT ILLNESS: This is a 40-year-old right-handed female who is known to me with longstanding history of a seizure disorder and frequent breakthrough seizures secondary to noncompliance. The patient stated she forgot to take her medication yesterday including Depakote. She reported two seizures, the first one was at 7 p.m., described as generalized tonic-clonic seizure followed by postictal confusion. She denies tongue biting or urinary or bladder incontinence. At 8 o'clock last night, she had another similar generalized tonic-clonic seizure when she lost her consciousness for 30-35 seconds followed by postictal confusion and disorientation. She also denies tongue biting, or bowel or urinary incontinence. The patient stated she has been having cold in the last few days and described intermittent chest pain, shortness of breath and dry cough. She denies any fever or chills. In the Emergency Room, the patient was alert, but she was found to have severe hypertension at 212/106. Initial nonenhanced head CT scan revealed no acute intracranial process. The patient was admitted for further evaluation. Currently, she denies chest pain or shortness of breath. She has had intermittent cough since admission. She denies recurrent seizure since admission. In the Emergency Room, the patient was given Depakote intravenously as loading dose. She denies headaches or visual disturbances. PAST MEDICAL HISTORY: Significant for idiopathic seizure disorder with frequent breakthrough seizures secondary to noncompliance, obesity, hypertension, hyperlipidemia, urinary tract infections, rheumatoid arthritis, diabetes mellitus, depressions, anxiety, anemia. PAST SURGICAL HISTORY: Positive for tubal ligations. FAMILY HISTORY: Mother had hyperlipidemia, hypertension and diabetes mellitus. SOCIAL HISTORY: The patient is . She has two children. She denies smoking, alcohol drinking or illicit drug use. CURRENT HOME MEDICATIONS: Janumet 1 tablet b.i.d., metoprolol 100 mg daily, losartan 100 mg daily, Vimpat 200 mg b.i.d., valproic acid 1000 mg t.i.d., Abilify 15 mg p.o. daily, amlodipine 10 mg p.o. daily, nitroglycerin one-inch t.i.d. for chest pain, Lovenox 90 mg subcutaneous b.i.d., aspirin 81 mg p.o. daily, albuterol nebulizer, lorazepam 1 mg p.o. p.r.n. for seizure, Tylenol 650 mg p.o. q. 4 hours p.r.n. and Zofran 4 mg q. 4 hours p.r.n. for nausea and vomiting. ALLERGIES: No known drug allergies. REVIEW OF SYSTEMS: A 10-point review of system was performed as mentioned above in history of present illness. PHYSICAL EXAMINATION: GENERAL: Obese female in no acute distress. She weighs 91.4 kilos. VITAL SIGNS: Blood pressure 176/121, respiratory rate 20, pulse is 114, oxygen saturation 97% on room air. HEENT: Normocephalic, atraumatic. Otherwise unremarkable. NECK: Supple, negative for carotid bruit, lymphadenopathy or thyromegaly. LUNGS: Clear to A and P. CARDIOVASCULAR: Regular rate and rhythm, normal S1, S2. There is no S3, S4 or murmur. ABDOMEN: Soft. Bowel sounds positive. EXTREMITIES: Negative for cyanosis, clubbing or pedal edema. NEUROLOGIC: Mental status: The patient is alert and oriented x 2. Speech is fluent. There is no language dysfunction. Memory, judgment and abstracting thinking are fair. The patient denies hallucination or delusion. Cranial nerves: Visual polanco are full. The pupils are reactive to light and accommodation. The extraocular movements are intact. There is no nystagmus. There is no facial motor or sensory deficits. Her hearing is intact bilaterally. The palate is elevated symmetrically. Sternocleidomastoid muscles are powerful bilaterally. The patient shrugs her shoulders symmetrically, protrudes her tongue in the midline without fasciculation or atrophy. Motor exam: No focal muscle bulk wasting. The tone is normal. The strength is 4/5 throughout. Sensory examination revealed normal pinprick, light touch, vibratory and position senses. Deep tendon reflexes were symmetric and hypoactive without pathology responses. Gait not tested at this time. LABORATORY DATA: CBC revealed white blood cells of 14.5 thousand, hemoglobin 11.1, hematocrit 35.5, platelet count 535,000. Chemistry reveals sodium 138, potassium 3.2, chloride 97, CO2 of 28, BUN 12, creatinine 1, glucose 220 and calcium 7.8. Coagulation: D-dimer is high at 1.17. Urinalysis revealed urinary tract infection. Urine drug screen is negative and valproic acid level is less than 3. Serology, influenza A and B is negative and rapid COVID-19 test is negative. DIAGNOSTIC DATA: Initial nonenhanced head CT scan revealed no evidence of acute intracranial process. A chest x-ray revealed normal study; however, chest CT angio revealed no evidence of pulmonary embolism, but shows patchy ground-glass opacities, probably secondary to inflammatory process. IMPRESSION: 1. Breakthrough seizure with history of frequent breakthrough seizures due to noncompliance with medications, mainly Depakote. 2. Multiple medical problems include obesity, emergency hypertension, hyperlipidemia. 3. Elevated troponin level. 4. Multiple psychiatric problems include bipolar disorder, depression and anxiety disorder. RECOMMENDATIONS: 1. Continue with current medications for seizure including Vimpat and Depakote. 2. Cardiology consult. 3. Treat underlying systemic infections, possible urinary tract infection versus bronchitis. RHEA/YOLANDA DR: Nico TID: [id number]
--- NOTE | 2021-06-19 10:30 | NUR ---
PATIENT DENIED A CHEST PAIN AT THIS TIME, STATED SHE HAS A HEADACHE, TYLENOL GIVEN ORDERED. PATIENT IS CURRENTLY RESTING COMFORTABLY.
[2021-06-19 12:14] VITALS: BP 140/77
[2021-06-19 15:56] VITALS: BP 142/77
--- NOTE | 2021-06-19 17:02 | NUR ---
PATIENT IS DISCHARGED HOME, DISCHARGE INSTRUCTION REVIEWED, PATIENT VERBALIZED UNDERSTANDING, PATIENT LEFT UNIT VIA AMBULATION ACCOMP BY STAFF. PATIENT TAKEN HOME BY VIA PERSONAL VEHICLE.
[2021-06-19 20:46] LABS: CHOLESTEROL/HDL RATIO 6.3
--- NOTE | 2021-06-20 03:55 | SSS ---
DATE OF SERVICE: 06/19/2021 ADMIT DATE: 06/19/2021 HISTORY OF PRESENT ILLNESS: The patient is a 40-year-old female patient who presented to the Emergency Room secondary to seizures. Troponin levels were noted to be mildly elevated, and she did also complain of chest pain and therefore, she was extensively investigated in the Emergency Room. Apparently, the patient is noncompliant with medications and she missed some of her Depakote. She is known to have chronic seizure disorder and apparently was admitted with breakthrough seizures on 08/03/2020. She was basically extensively investigated in the Emergency Room and has had lab work and imaging studies. Her tox screen showed that her valproic acid was less than 3, indicating that she is not taking her Depakote for much longer than only missing one dose only. However, her coronavirus PCR, influenza A and B were all negative, and her tox screen was negative for all other drugs. Her chemistry showed that she has hypokalemia. Her troponin was high at 131 and therefore, Cardiology and the neurologist services were consulted. The patient was treated with loading dose of valproic acid given she received 1000 mg orally and another 500 mg IV and was admitted for observation. She has had no further episodes of seizure disorder and therefore, the patient was discharged with instructions to be compliant with her medications. PAST MEDICAL HISTORY: Significant for hypertension, hyperlipidemia, bronchial asthma, seizure disorder, depression, generalized osteoarthritis, rheumatoid arthritis, and diabetes. PAST SURGICAL HISTORY: Significant for cholecystectomy and tubal ligation. FAMILY HISTORY: She has 2 brothers, older, alive and healthy. She has 2 sisters, one older, healthy, and one younger has diabetes and bipolar disorder. Her mother is still alive at the age of 66 and is known to have hypertension, diabetes, and hyperlipidemia. She does not know her biological father. SOCIAL HISTORY: She is , has a son and a daughter. She quit smoking in 2009. She does not drink alcohol or use recreational drugs. She works for [employer]. ALLERGIES: She has no known drug allergies. MEDICATIONS: She is currently on the following medications: She is on metoprolol succinate 100 mg once a day, amlodipine 10 mg once a day, losartan potassium 100 mg once a day, divalproex 1000 mg 3 times a day, lacosamide for Vimpat 200 mg twice a day, aripiprazole for Abilify 15 mg once a day, sitagliptin/metformin for Janumet twice a day, and Xeljanz XR 11 mg p.o. daily for rheumatoid arthritis. REVIEW OF SYSTEMS: As per history of present illness. PHYSICAL EXAMINATION: GENERAL: On arrival to the Emergency Room, the patient was tachypneic, hypertensive, tachycardic. She was pale, but not jaundiced or cyanosed. No lymphadenopathy, no thyromegaly, no jugular venous distention. No limb edema. VITAL SIGNS: Her heart rate was 110, blood pressure was 212/106, temperature was 98, respiratory rate was 18, and oxygen saturation was 98%. HEAD, EYES, EARS, NOSE, AND THROAT: Normocephalic, atraumatic. NECK: Supple. HEART: Showed normal first and second heart sounds. No gallop or murmur. CHEST: Clear to auscultation. No crepitation or rhonchi. ABDOMEN: Distended, soft, nontender. NEUROLOGIC: She was alert, oriented x 3 with normal motor and sensory function. No focal deficit. LABORATORY DATA: Her white cell count was 14,500, hemoglobin 11, hematocrit 35, MCV 76 and platelet count of 535,000. Her chemistry showed a serum sodium 139, potassium 3.5, chloride 96, bicarbonate 32, anion gap of 11, BUN 16, creatinine 1.1. Estimated GFR was 55 mL per minute. Her glucose was 182, calcium was 8.7, magnesium was 1.7. Total bilirubin, AST, ALT, alkaline phosphatase were normal. Total protein was 6.8, albumin was 3.1. She has 3 sets of troponin that are elevated at 137, 126 and 151. ASSESSMENT AND PLAN: She apparently was seen by Dr. Astudillo who recommended to continue with current medication for seizure including Vimpat and Depakote. The Cardiology team has seen her and basically told that the elevated troponin was type 2 demand ischemia, that the patient basically was to consider echocardiogram and ischemic workup as an outpatient. The patient remained stable and she stated she does not need any prescription for medications. We emphasized the compliance to avoid any further seizures and was discharged home with final discharge diagnosis of breakthrough seizures due to noncompliance. Other medical problems include obesity, hypertension, hyperlipidemia. MARCIAL/ROCHELLE/BRITTNY DR: Marci TID: [id number]
== END 2021-06-19 17:00 | disposition home or self-care (01) ==
LOC: ER 20:12 → 1 SOUTH 06-19 01:22 → INTOOBSV 06-19 01:22
PROVIDERS: ADMIT Internal Medicine; ATTEND Internal Medicine
DX: R56.9 Unspecified convulsions (principal); Z20.822 Contact with and (suspected) exposure to COVID-19; I24.8 Other forms of acute ischemic heart disease; R77.8 Other specified abnormalities of plasma proteins; I10 Essential (primary) hypertension; E78.5 Hyperlipidemia, unspecified; J45.909 Unspecified asthma, uncomplicated; M06.9 Rheumatoid arthritis, unspecified; E11.9 Type 2 diabetes mellitus without complications; D64.9 Anemia, unspecified; D72.829 Elevated white blood cell count, unspecified; D75.839 Thrombocytosis, unspecified; E66.9 Obesity, unspecified; E83.42 Hypomagnesemia; E87.6 Hypokalemia; F05 Delirium due to known physiological condition; F31.9 Bipolar disorder, unspecified; F41.9 Anxiety disorder, unspecified; I16.0 Hypertensive urgency; M15.9 Polyosteoarthritis, unspecified; Z90.49 Acquired absence of other specified parts of digestive tract; Z79.899 Other long term (current) drug therapy; Z98.890 Other specified postprocedural states; Z98.51 Tubal ligation status; Z87.891 Personal history of nicotine dependence; Z91.14 Patient's other noncompliance with medication regimen; Z91.19 Patient's noncompliance with other medical treatment and regimen; Z68.33 Body mass index [BMI] 33.0-33.9, adult
CPT/HCPCS: 36415; 70450; 71045; 71275; 80048; 80061; 80076; 80164; 80307; 81001; 82550; 82947; 83690; 83735; 83880; 84443; 84484; 85025; 85379; 85610; 85730; 87086; 87426; 87804; 93005; 96365; 96366; 96372; 96375; 99285; G0378; J1650; J1815; J7120; Q9967; U0003; 96361; 96374; G0379

== ENCOUNTER 2021-07-12 20:53 | Emergency (ER) | payer OTHER ==
[~2021-07-12] VITALS: Ht 165.1 cm; Wt 91.4 kg
[~2021-07-12 20:53] MED LIST changes: +AMLO-187 PO; +DIVA500T2 PO; +METO-247 PO; +SITA1TAB11 PO; +TOFA11TA PO
[2021-07-12] MEDS ORDERED: IV NORMAL SALINE 1,000ML 1,000 ML IV ONE (21:00)
[2021-07-12 21:36] LABS: BASO # 0.1 x10^3/uL (0.0-0.2); BASO % 1 % (0-3); EOS # 0.3 x10^3/uL (0.0-0.7); EOS % 4 % (0-3); HEMATOCRIT 35.3 % (36.0-47.0); HEMOGLOBIN 11.5 g/dL (12.0-15.5); LYMPH # 2.5 x10^3/uL (1.0-4.8); LYMPH % 27 % (24-48); MEAN CORPUSCULAR HEMOGLOBIN 24 pg (25-35); MEAN CORPUSCULAR HGB CONC 33 g/dL (31-37); MEAN CORPUSCULAR VOLUME 74 fL (79-100); MONO # 0.6 x10^3/uL (0.0-1.1); MONO % 6 % (0-9); NEUT # 5.8 x10^3uL (1.8-7.7); NEUT % 62 % (31-73); PLATELET COUNT 450 x10^3/uL (140-400); RED BLOOD COUNT 4.76 x10^6/uL (3.50-5.40); RED CELL DISTRIBUTION WIDTH 16.2 % (11.5-14.5); WHITE BLOOD COUNT 9.3 x10^3/uL (4.0-11.0)
--- NOTE | 2021-07-12 21:41 | EKG ---
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
[2021-07-12 21:51] LABS: CALCIUM 9.3 mg/dL (8.5-10.1); CREATININE 0.9 mg/dL (0.6-1.0); GFR 69.7
[2021-07-12 22:06] LABS: ALBUMIN 2.9 g/dL (3.4-5.0); ALBUMIN/GLOBULIN RATIO 0.7 (1.0-1.7); MAGNESIUM 1.9 mg/dL (1.8-2.4); TOTAL BILIRUBIN 0.4 mg/dL (0.2-1.0); TOTAL PROTEIN 7.3 g/dL (6.4-8.2)
[2021-07-12 22:39] LABS: BARBITURATES NEG (NEG); BENZODIAZEPINES NEG (NEG); CANNABINOIDS NEG (NEG); COCAINE NEG (NEG); METHADONE NEG (NEG); OPIATES NEG (NEG); PHENCYCLIDINE NEG (NEG)
[2021-07-12 22:40] LABS: AMPHETAMINE/METHAMPHETAMINE POS (NEG)
[2021-07-12] MEDS ORDERED: POTASSIUM CHLORIDE 20 MEQ TABLET.ER. PO ONE (23:00)
[2021-07-12] MEDS ORDERED: LABETALOL 20 MG/4 ML DISP.SYRIN. IVP ONE (23:45)
[2021-07-13 00:36] LABS: U PREG PATIENT NEGATIVE (NEG)
--- NOTE | 2021-07-13 00:40 | PHYS DOC ---
Past History Past Medical History: Arthritis, Diabetes, Hypertension, Seizure Additional Past Medical Histor: RA Past Surgical History: Cholecystectomy, Tubal ligation Alcohol Use: None General Adult EDM: Chief Complaint: SEIZURE HPI: HPI: Patient is a [age] year old [sex] who presents with [] Review of Systems: Review of Systems: Constitutional: Denies fever or chills Eyes: Denies change in visual acuity HENT: Denies nasal congestion or sore throat Respiratory: Denies cough or shortness of breath Cardiovascular: Denies chest pain or edema GI: Denies abdominal pain, nausea, vomiting, bloody stools or diarrhea : Denies dysuria Musculoskeletal: Denies back pain or joint pain Integument: Denies rash Neurologic: Denies headache, focal weakness or sensory changes Endocrine: Denies polyuria or polydipsia Lymphatic: Denies swollen glands Psychiatric: Denies depression or anxiety Current Medications: Current Meds: Current Medications Medications (Trade) Dose Ordered Sig/Nino Start Time Stop Time Status Last Admin Dose Admin Labetalol HCl (Normodyne) 10 mg 1X ONCE 07/12/21 23:45 07/12/21 23:46 DC 07/12/21 23:32 10 MG Lorazepam (Ativan Inj) 2 mg 1X ONCE 07/12/21 21:30 07/12/21 21:31 DC 07/12/21 21:11 2 MG Potassium Chloride (Klor-Con) 40 meq 1X ONCE 07/12/21 23:00 07/12/21 23:06 DC 07/12/21 23:12 40 MEQ Sodium Chloride 1,000 ml @ 1,000 mls/hr 1X ONCE 07/12/21 21:00 07/12/21 21:59 DC 07/12/21 21:13 1,000 MLS/HR Allergies: Allergies: Allergies Coded Allergies Type Severity Reaction Last Updated Verified No Known Drug Allergies 05/04/20 No Physical Exam: PE: Constitutional: Well developed, well nourished, no acute distress, non-toxic appearance. [] HENT: Normocephalic, atraumatic, bilateral external ears normal, oropharynx moist, no oral exudates, nose normal. [] Eyes: PERRLA, EOMI, conjunctiva normal, no discharge. [] Neck: Normal range of motion, no tenderness, supple, no stridor. [] Cardiovascular:Heart rate regular rhythm, no murmur [] Lungs & Thorax: Bilateral breath sounds clear to auscultation [] Abdomen: Bowel sounds normal, soft, no tenderness, no masses, no pulsatile masses. [] Skin: Warm, dry, no erythema, no rash. [] Back: No tenderness, no CVA tenderness. [] Extremities: No tenderness, no cyanosis, no clubbing, ROM intact, no edema. [] Neurologic: Alert and oriented X 3, normal motor function, normal sensory function, no focal deficits noted. [] Psychologic: Affect normal, judgement normal, mood normal. [] Current Patient Data: Labs: Laboratory Tests Test 07/12/21 20:57 07/12/21 21:52 White Blood Count 9.3 x10^3/uL (4.0-11.0) Red Blood Count 4.76 x10^6/uL (3.50-5.40) Hemoglobin 11.5 g/dL (12.0-15.5) L Hematocrit 35.3 % (36.0-47.0) L Mean Corpuscular Volume 74 fL (79-100) L Mean Corpuscular Hemoglobin 24 pg (25-35) L Mean Corpuscular Hemoglobin Concent 33 g/dL (31-37) Red Cell Distribution Width 16.2 % (11.5-14.5) H Platelet Count 450 x10^3/uL (140-400) H Neutrophils (%) (Auto) 62 % (31-73) Lymphocytes (%) (Auto) 27 % (24-48) Monocytes (%) (Auto) 6 % (0-9) Eosinophils (%) (Auto) 4 % (0-3) H Basophils (%) (Auto) 1 % (0-3) Neutrophils # (Auto) 5.8 x10^3uL (1.8-7.7) Lymphocytes # (Auto) 2.5 x10^3/uL (1.0-4.8) Monocytes # (Auto) 0.6 x10^3/uL (0.0-1.1) Eosinophils # (Auto) 0.3 x10^3/uL (0.0-0.7) Basophils # (Auto) 0.1 x10^3/uL (0.0-0.2) Sodium Level 136 mmol/L (136-145) Potassium Level 3.0 mmol/L (3.5-5.1) L Chloride Level 98 mmol/L (98-107) Carbon Dioxide Level 30 mmol/L (21-32) Anion Gap 8 (6-14) Blood Urea Nitrogen 8 mg/dL (7-20) Creatinine 0.9 mg/dL (0.6-1.0) Estimated GFR (Cockcroft-Gault) 69.7 BUN/Creatinine Ratio 9 (6-20) Glucose Level 277 mg/dL (70-99) H Lactic Acid Level 1.6 mmol/L (0.4-2.0) Calcium Level 9.3 mg/dL (8.5-10.1) Magnesium Level 1.9 mg/dL (1.8-2.4) Total Bilirubin 0.4 mg/dL (0.2-1.0) Aspartate Amino Transferase (AST) 31 U/L (15-37) Alanine Aminotransferase (ALT) 47 U/L (14-59) Alkaline Phosphatase 83 U/L (46-116) Creatine Kinase 88 U/L (26-192) Total Protein 7.3 g/dL (6.4-8.2) Albumin 2.9 g/dL (3.4-5.0) L Albumin/Globulin Ratio 0.7 (1.0-1.7) L Ethyl Alcohol Level < 10 mg/dL (0-10) Urine Opiates Screen Neg (NEG) Urine Methadone Screen Neg (NEG) Urine Barbiturates Neg (NEG) Urine Phencyclidine Screen Neg (NEG) Urine Amphetamine/Methamphetamine Pos (NEG) Urine Benzodiazepines Screen Neg (NEG) Urine Cocaine Screen Neg (NEG) Urine Cannabinoids Screen Neg (NEG) Urine Ethyl Alcohol Neg (NEG) Vital Signs: Vital Signs Date Time Temp Pulse Resp B/P (MAP) Pulse Ox O2 Delivery O2 Flow Rate FiO2 07/12/21 23:32 114 193/113 07/12/21 22:58 28 100 Room Air 07/12/21 20:53 97.9 EKG: EKG: @ 2122 sinus tachycardia, NO stemi, VA 148ms, QRS 94ms, QT/QTc 376/508ms. Radiology/Procedures: Radiology/Procedures: [] Heart Score: Risk Factors: Risk Factors: DM, Current or recent (<one month) smoker, HTN, HLP, family history of CAD, obesity. Risk Scores: Score 0 - 3: 2.5% MACE over next 6 weeks - Discharge Home Score 4 - 6: 20.3% MACE over next 6 weeks - Admit for Clinical Observation Score 7 - 10: 72.7% MACE over next 6 weeks - Early Invasive Strategies Course & Med Decision Making: Course & Med Decision Making Pertinent Labs and Imaging studies reviewed. (See chart for details) [] Dragon Disclaimer: Dragon Disclaimer: This electronic medical record was generated, in whole or in part, using a voice recognition dictation system. Departure Departure: Impression: Primary Impression: Breakthrough seizure Disposition: HOME / SELF CARE / HOMELESS Condition: STABLE Referrals: EILEEN ROMO DO (PCP) MILTON LOPEZ MD Patient Instructions: Seizure, Adult, [id number] ANGELIQUE DIAZ DO Jul 13, 2021 00:40
[2021-07-13 00:42] LABS: BACTERIA,URINE 0 /HPF (0-FEW); BILIRUBIN,URINE NEG (NEG); CLARITY,URINE CLEAR; COLOR,URINE YELLOW; GLUCOSE,URINE >=1000 mg/dL (NEG); NITRITE,URINE NEG (NEG); RBC,URINE 0 /HPF (0-2); SQUAMOUS EPITHELIAL CELL,UR FEW /LPF; UROBILINOGEN,URINE 0.2 mg/dL (0.2 mg/dL)
[2021-07-13 01:06] VITALS: BP 150/88
== END 2021-07-13 01:10 | disposition home or self-care (01) ==
LOC: ER 20:53
DX: R56.9 Unspecified convulsions (principal); M19.90 Unspecified osteoarthritis, unspecified site; E11.9 Type 2 diabetes mellitus without complications; I10 Essential (primary) hypertension; M06.9 Rheumatoid arthritis, unspecified
CPT/HCPCS: 36415; 80053; 80307; 81001; 81025; 82550; 83605; 83735; 85025; 87077; 87086; 93005; 96361; 96374; 96375; 99285; G0480; J2060; J3490; J7030; 99284

== ENCOUNTER 2021-08-25 05:09 | Emergency (ER) | payer OTHER ==
[~2021-08-25] VITALS: Ht 152.4 cm; Wt 86.1 kg
--- NOTE | 2021-08-25 05:27 | PHYS DOC ---
Past History Past Medical History: Arthritis, Diabetes, Hypertension, Seizure Additional Past Medical Histor: RA (TARYN IRBY DO) Past Surgical History: Cholecystectomy (TARYN IRBY DO) Smoking: Quit Greater Than 1 Year Alcohol Use: None (TARYN IRBY DO) General Adult EDM: Chief Complaint: SHORTNESS OF BREATH HPI: HPI: 41-year-old female presents with shortness of breath. The patient is breathing shallow and fast. She is not able to talk very much. Patient states that she started feeling short of breath yesterday with coughing. This is gotten worse and she started to feel much more short of breath this morning. She denies any significant medical history. Denies any history of lung or heart problems. She does not use albuterol or any kind of breathing treatments at home. She denies any known sick contacts. No reported fever at home. (TARYN IRBY DO) Review of Systems: Review of Systems: Constitutional: Denies fever or chills Eyes: Denies change in visual acuity HENT: Denies nasal congestion or sore throat Respiratory: shortness of breath, cough. Cardiovascular: Denies chest pain or edema GI: Denies abdominal pain, nausea, vomiting, bloody stools or diarrhea : Denies dysuria Musculoskeletal: Denies back pain or joint pain Integument: Denies rash Neurologic: Denies headache, focal weakness or sensory changes Endocrine: Denies polyuria or polydipsia Lymphatic: Denies swollen glands Psychiatric: Denies depression or anxiety (TARYN IRBY DO) Allergies: Allergies: Allergies Coded Allergies Type Severity Reaction Last Updated Verified No Known Drug Allergies 05/04/20 No (TARYN IRBY DO) Physical Exam: PE: Constitutional: Well developed, well nourished, morbidly obese, moderate acute distress, non-toxic appearance. [] HENT: Normocephalic, atraumatic, bilateral external ears normal, oropharynx moist, no oral exudates, nose normal. [] Eyes: PERRLA, EOMI, conjunctiva normal, no discharge. [] Neck: Normal range of motion, no tenderness, supple, no stridor. [] Cardiovascular: Heart rate 114, regular rhythm, no murmur [] Lungs & Thorax: Bilateral breath sounds clear to auscultation, short, shallow breaths [] Abdomen: Bowel sounds normal, soft, no tenderness, no masses, no pulsatile masses. [] Skin: Warm, dry, no erythema, no rash. [] Back: No tenderness, no CVA tenderness. [] Extremities: No tenderness, no cyanosis, no clubbing, ROM intact, no edema. [] Neurologic: Alert and oriented X 3, normal motor function, normal sensory function, no focal deficits noted. [] Psychologic: Affect normal, judgement normal, mood very anxious. [] (TARYN IRBY DO) Current Patient Data: Vital Signs: Vital Signs Date Time Temp Pulse Resp B/P (MAP) Pulse Ox O2 Delivery O2 Flow Rate FiO2 08/25/21 05:11 118 26 96 Nasal Cannula 2.0 (TARYN IRBY DO) EKG: EKG: Sinus tachycardia, rate 110, normal axis, no ST elevation or depression. [] (TARYN IRBY DO) Radiology/Procedures: Radiology/Procedures: [] (TARYN IRBY DO) Heart Score: C/O Chest Pain: No Risk Factors: Risk Factors: DM, Current or recent (<one month) smoker, HTN, HLP, family history of CAD, obesity. Risk Scores: Score 0 - 3: 2.5% MACE over next 6 weeks - Discharge Home Score 4 - 6: 20.3% MACE over next 6 weeks - Admit for Clinical Observation Score 7 - 10: 72.7% MACE over next 6 weeks - Early Invasive Strategies (TARYN IRBY DO) Course & Med Decision Making: Course & Med Decision Making Pertinent Labs and Imaging studies reviewed. (See chart for details) The patient's EKG showed sinus tachycardia. Patient appears very anxious. Her oxygen saturation on arrival quickly ranged between the mid 80s and 90 to 93%. We went ahead and placed her on 2 L for comfort. I have given her a milligram of Ativan. Her blood pressure is persistently high as we have given her 0.1 mg of clonidine. I am concerned about a pulmonary embolus so a CT angiogram of the chest has been ordered. The patient's work-up is pending. I have signed her out to Dr. Pierson at 0600. [] (TARYN IRBY DO) Course & Med Decision Making [place] - 0654 -patient is very ill and appears to be in new onset heart failure with pulmonary edema possibly from an ischemic event as she has ST depression in her lateral leads and has an elevated troponin. Aspirin has been given and I ordered heparin and then I went to speak to the patient about any bleeding and she says she had hemoptysis yesterday in addition for the past 2 days her stools have been bright red blood so I ordered a Hemoccult but we cannot do the testing here him and it has to be sent to lab as I am waiting for the lab to develop the Hemoccult. Patient's hemoglobin is usually low but it is 1 g lower than her prior draws. Patient is hypertensive and will be given nitroglycerin sublingual and paste in addition to a dose of Lasix. She is hypokalemic so I will give her oral and IV potassium in addition to IV magnesium. The radiologist could not rule out pneumonia so I will order a dose of Zosyn but certainly pulmonary edema is felt most likely clinically. Cardiology has been consulted but has not called back to this point. I spoke to Dr. Cline at [facility] for transfer and he agreed to accept patient. Patient is improving but still appears quite ill and will be transferred in a guarded condition. Of note patient is not complaining of any chest pain but she is still dyspneic and requiring 2 L of oxygen to maintain her oxygen saturation in the 90s. Critical care time of 40 minutes. (YVETTE PIERSON DO) Dragon Disclaimer: Dragon Disclaimer: This electronic medical record was generated, in whole or in part, using a voice recognition dictation system. (TARYN IRBY DO) Departure Departure: Impression: Primary Impression: NSTEMI (non-ST elevated myocardial infarction) Additional Impressions: Hypokalemia Pulmonary edema Elevated brain natriuretic peptide (BNP) level Acute electrocardiogram changes Leukocytosis Anemia Malignant hypertension Respiratory failure with hypoxia Disposition: 02 [facility] Admitting Physician: Other (Son) (YVETTE PIERSON DO) Condition: GUARDED Referrals: EILEEN ROMO DO (PCP) TARYN IRBY DO Aug 25, 2021 05:27 YVETTE PIERSON DO Aug 25, 2021 06:58
[2021-08-25 05:34] LABS: BASO # 0.1 x10^3/uL (0.0-0.2); BASO % 1 % (0-3); EOS # 0.3 x10^3/uL (0.0-0.7); EOS % 2 % (0-3); HEMATOCRIT 33.9 % (36.0-47.0); HEMOGLOBIN 10.4 g/dL (12.0-15.5); LYMPH # 3.8 x10^3/uL (1.0-4.8); LYMPH % 23 % (24-48); MEAN CORPUSCULAR HEMOGLOBIN 22 pg (25-35); MEAN CORPUSCULAR HGB CONC 31 g/dL (31-37); MEAN CORPUSCULAR VOLUME 72 fL (79-100); MONO # 0.8 x10^3/uL (0.0-1.1); MONO % 5 % (0-9); NEUT # 11.6 x10^3uL (1.8-7.7); NEUT % 69 % (31-73); PLATELET COUNT 656 x10^3/uL (140-400); RED CELL DISTRIBUTION WIDTH 17.8 % (11.5-14.5); WHITE BLOOD COUNT 16.7 x10^3/uL (4.0-11.0)
[2021-08-25] MEDS ORDERED: CONTRAST GIVEN. MC PRN (05:45)
--- NOTE | 2021-08-25 05:59 | EKG ---
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
[2021-08-25] MEDS ORDERED: IOHEXOL 350 MG/ML 100 ML VIAL. IV ONE (06:00)
[2021-08-25] MEDS ORDERED: cloNIDine HCL 0.1 MG TABLET PO ONE (06:00)
[2021-08-25 06:01] LABS: ALBUMIN 3.1 g/dL (3.4-5.0); ALBUMIN/GLOBULIN RATIO 0.8 (1.0-1.7); CALCIUM 8.4 mg/dL (8.5-10.1); CREATININE 1.1 mg/dL (0.6-1.0); TOTAL BILIRUBIN 0.5 mg/dL (0.2-1.0); TOTAL PROTEIN 6.8 g/dL (6.4-8.2)
--- NOTE | 2021-08-25 06:04 | RAD ---
XR CHEST 1V History: Shortness of breath Comparison: 06/18/2021 Technique: Portable AP radiograph of the chest. Findings: The lungs are adequately inflated. There are moderate bilateral airspace opacities. No pneumothorax. The cardiac silhouette is enlarged. No acute osseous abnormality. Soft tissues are unremarkable. Impression: 1. Enlarged cardiac silhouette with bilateral airspace opacities likely represent pulmonary edema. M ultifocal infection is not excluded in the appropriate clinical setting. Electronically signed by: Nima Villanueva MD (08/25/2021 6:02 AM) [facility]
[2021-08-25 06:08] LABS: INFLUENZA A PATIENT NEGATIVE (NEGATIVE); INFLUENZA B PATIENT NEGATIVE (NEGATIVE)
[2021-08-25] MEDS ORDERED: ASPIRIN CHEWABLE 81 MG TABLET. ONE (06:10)
[2021-08-25] MEDS ORDERED: ASPIRIN CHEWABLE 81 MG TABLET. PO ONE (06:30)
[2021-08-25 06:32] LABS: % LYMPHS 31 % (24-48); % MONOS 4 % (0-10); % SEGS 65 % (35-66)
[2021-08-25 06:33] LABS: ANISOCYTOSIS SLIGHT; HYPOCHROMIA SLIGHT; MICROCYTOSIS SLIGHT; PLT ESTIMATE ADEQUATE (ADEQUATE); STOMATOCYTES OCC
--- NOTE | 2021-08-25 06:41 | RAD ---
CTA CHEST History: Shortness of breath. Rule out PE. Comparison: CTA chest 06/18/2021 Technique: CTA of the pulmonary arteries with intravenous contrast. 3-D postprocessing was performed. Findings: Pulmonary arteries: No pulmonary embolism. Aorta and great vessels: No aneurysm or dissection of the aortic arch or thoracic aorta. Thyroid: No significant abnormalities. Mediastinum and alvin: No mediastinal masses or adenopathy is seen. Esophagus: Mildly patulous esophagus with small sliding hiatal hernia. Heart: Enlarged heart. Trace pericardial effusion. Airways, Lungs, Pleura: The airways are clear. There are right greater than left groundglass of conso lidations involving every lobe with relative subpleural sparing. No pleural effusion or pneumothorax. Upper abdomen: Hepatic steatosis. Cholecystectomy clips. Osseous structures and soft tissues: Within normal limits for age. Impression: 1. No pulmonary embolism. 2. Right greater than left panlobular central groundglass consolidations. Findings likely represent pulmonary edema. Multifocal infection is not excluded in the appropriate clinical setting. ------ Exposure: One or more of the following individualized dose reduction techniques were utilized for thi s examination: 1. Automated exposure control 2. Adjustment of the mA and/or kV according to patient size 3. Use of iterative reconstruction technique. Electronically signed by: Nima Villanueva MD (08/25/2021 6:39 AM) [facility]
[2021-08-25] MEDS ORDERED: ANTI-COAG MONITOR BY PHARMACY. MC PRN (06:45)
[2021-08-25] MEDS ORDERED: HEPARIN 25,000UTS/250ML PREMIX 250 ML IV PRN (06:45)
[2021-08-25] MEDS ORDERED: HEPARIN for IV BOLUS 10,000 UNIT/10 ML VIAL. IV ONE (06:45)
[2021-08-25] MEDS ORDERED: HEPARIN for IV BOLUS 10,000 UNIT/10 ML VIAL. IV PRN (06:45)
[2021-08-25] MEDS: NITROGLYCERIN SUBLINGUAL 0.4 MG BOTTLE OF 25. SL PRN ×2 (06:47→07:53)
[2021-08-25] MEDS ORDERED: POTASSIUM CHLORIDE 10MEQ 100 ML IV SCH (07:00)
[2021-08-25] MEDS ORDERED: POTASSIUM CHLORIDE 20 MEQ TABLET.ER. PO ONE (07:00)
[2021-08-25] MEDS ORDERED: FUROSEMIDE 40 MG/4 ML VIAL IVP ONE (07:00)
[2021-08-25] MEDS ORDERED: NITROGLYCERIN OINT 1 GM PACKET. TP ONE (07:00)
[2021-08-25] MEDS ORDERED: PIPERACILLIN/TAZOBACTAM 3.375 GM in IV NORMAL SALINE 50ML 50 ML IV ONE (07:00)
[2021-08-25] MEDS ORDERED: MAGNESIUM SULFATE 2GM 50 ML IV ONE (07:00)
[2021-08-25] MEDS ORDERED: IV NORMAL SALINE 50ML 50 ML ONE (07:10)
[2021-08-25] MEDS ORDERED: PIPERACILLIN/TAZOBACTAM 3.375 GM VIAL IV ONE (07:10)
[2021-08-25 07:19] LABS: FECAL OB PT NEGATIVE (NEG)
[2021-08-25] MEDS ORDERED: NITROGLYCERIN SUBLINGUAL 0.4 MG BOTTLE OF 25. SL PRN (08:00)
[2021-08-25 08:24] VITALS: BP 154/100
== END 2021-08-25 08:50 | disposition short-term general hospital (02) ==
LOC: ER 05:09
DX: J96.91 Respiratory failure, unspecified with hypoxia (principal); I21.4 Non-ST elevation (NSTEMI) myocardial infarction; E87.6 Hypokalemia; J81.1 Chronic pulmonary edema; R79.89 Other specified abnormal findings of blood chemistry; D72.829 Elevated white blood cell count, unspecified; D64.9 Anemia, unspecified; I10 Essential (primary) hypertension; M19.90 Unspecified osteoarthritis, unspecified site; E11.9 Type 2 diabetes mellitus without complications; Z20.822 Contact with and (suspected) exposure to COVID-19; Z87.891 Personal history of nicotine dependence
CPT/HCPCS: 36415; 71045; 71275; 80053; 82274; 82803; 83880; 84484; 85007; 85025; 85610; 85730; 87428; 93005; 96365; 96368; 96375; 96376; 99291; C9803; J1644; J1940; J2060; J2543; J3475; J3480; Q9967; U0003